=== PATIENT | female | born 1955 | race Caucasian/White ===

== ENCOUNTER → 2017-11-15 11:06 | Outpatient (CLI) | payer OTHER, SELFPAY ==
--- NOTE | 2017-11-15 11:07 | DI.RAD.S_ITS ---
PROCEDURE: XR ANKLE RT MIN 3V INDICATIONS: Ankle pain TECHNIQUE: 3 views of the ankle were acquired. COMPARISON: None. FINDINGS: Bones: No fractures or dislocations. Ankle mortise is normally aligned. No suspicious bony lesions. Soft tissues: No tibiotalar joint effusion. Achilles tendon appears normal. Lateral soft tissue swelling. IMPRESSION: Soft tissue swelling laterally, negative for fracture Dictated by: Jagdeep Givens M.D. on 11/15/2017 at 11:19 Approved by: Jagdeep Givens M.D. on 11/15/2017 at 11:20
== END ==
PROVIDERS: PCP Physician Assistant; Visit Provider Physician Assistant
DX: M25.571 Pain in right ankle and joints of right foot (principal); M25.471 Effusion, right ankle
CPT/HCPCS: 73610

== ENCOUNTER → 2018-03-12 12:31 | Outpatient (CLI) | payer OTHER, SELFPAY ==
--- NOTE | 2018-03-12 12:33 | DI.MG.S_ITS ---
BILATERAL DIGITAL SCREENING MAMMOGRAM 3D/2D WITH CAD: 03/12/2018 CLINICAL: Routine screening. Comparison is made to exams dated: 03/02/2017 mammogram, 01/17/2015 mammogram, and 01/15/2014 mammogram - [facility]. The tissue of both breasts is heterogeneously dense. This may lower the sensitivity of mammography. Current study was also evaluated with a Computer Aided Detection (CAD) system. No significant masses, calcifications, or other findings are seen in either breast. There has been no significant interval change. IMPRESSION: NEGATIVE There is no mammographic evidence of malignancy. A 1 year screening mammogram is recommended. This exam was interpreted at Station ID: [id number]. NOTE: For mammograms, a report in lay terms will be sent to the patient. Approximately 15% of breast malignancies will not be visualized mammographically. In the management of a palpable breast mass, a negative mammogram must not discourage biopsy of a clinically suspicious lesion. Electronically Signed By: Mahesh carpio/dara:03/15/2018 11:59:56 letter sent: Normal Exam ACR BI-RADS Category 1: Negative 3341F
== END ==
PROVIDERS: PCP Physician Assistant; Visit Provider Physician Assistant
DX: Z12.31 Encounter for screening mammogram for malignant neoplasm of breast (principal)
CPT/HCPCS: 77063; 77067

== ENCOUNTER → 2018-03-24 09:49 | Outpatient (CLI) | payer OTHER, SELFPAY ==
[2018-03-24 10:39] LABS: Alanine Aminotransferase 24 IU/L (9-52); Albumin 4.3 g/dL (3.5-5.0); Albumin Globulin Ratio 1.5 (1.0-2.8); Alkaline Phosphatase 56 U/L (38-126); Aspartate Aminotransferase 29 IU/L (14-36); BUN Creatinine Ratio 18.8 (6-22); Bilirubin Total 1.1 mg/dL (0.2-1.3); Blood Urea Nitrogen 15 mg/dL (7-17); Calcium 9.4 mg/dL (8.4-10.2); Carbon Dioxide 24 mmol/L (22-32); Chloride 98 mmol/L (98-107); Cholesterol 243 mg/dL (140-199); Estimated Glomerular Filt Rate > 60.0 mL/min (>60); Globulin 2.9 g/dL (1.7-4.1); Glucose 91 mg/dL (80-110); HDL Cholesterol 71 mg/dL (40-60); HEMOLYSIS < 15 (0-50); LDL Cholesterol Calculated 149 mg/dL (<100); Potassium 4.3 mmol/L (3.4-5.1); Sodium 135 mmol/L (137-145); Total Protein 7.2 g/dL (6.3-8.2); Triglycerides 114 mg/dL (35-150)
[2018-03-24 10:52] LABS: Free T3, Triiodothyronine Free 3.39 pg/mL (2.77-5.27)
[2018-03-24 10:54] LABS: Vitamin D 25 Hydroxy (D3) 69.9 ng/mL (30.0-100.0)
[2018-03-24 11:06] LABS: Thyroid Stimulating Hormone 2.91 uIU/mL (0.47-4.68)
== END ==
PROVIDERS: PCP Physician Assistant; Visit Provider Physician Assistant
DX: E03.9 Hypothyroidism, unspecified (principal); M85.80 Other specified disorders of bone density and structure, unspecified site; Z13.220 Encounter for screening for lipoid disorders; Z13.6 Encounter for screening for cardiovascular disorders
CPT/HCPCS: 36415; 80053; 80061; 82306; 84439; 84443; 84481

== ENCOUNTER → 2018-08-30 11:49 | Outpatient (CLI) | payer OTHER, SELFPAY ==
[2018-09-01 09:05] LABS: Fecal Immunochemical Test NOT DETECTED (NOT DETECTED)
== END ==
PROVIDERS: PCP Physician Assistant; Visit Provider Physician Assistant
DX: Z12.11 Encounter for screening for malignant neoplasm of colon (principal)
CPT/HCPCS: 82274

== ENCOUNTER → 2019-01-03 13:32 | Outpatient (CLI) | payer OTHER, SELFPAY ==
[2019-01-03 15:04] LABS: Iron 101 ug/dL (37-170)
== END ==
PROVIDERS: PCP Physician Assistant; Visit Provider Physician Assistant
DX: R53.83 Other fatigue (principal)
CPT/HCPCS: 36415; 83540

== ENCOUNTER → 2019-03-30 11:05 | Outpatient (CLI) | payer OTHER, SELFPAY ==
--- NOTE | 2019-03-30 | DI.MG.S_ITS ---
BILATERAL DIGITAL SCREENING MAMMOGRAM 3D/2D WITH CAD: 03/30/2019 CLINICAL: Routine screening. Comparison is made to exams dated: 03/12/2018 mammogram, 03/02/2017 mammogram, 01/17/2015 mammogram, and 01/15/2014 mammogram - [facility]. The tissue of both breasts is heterogeneously dense. This may lower the sensitivity of mammography. Current study was also evaluated with a Computer Aided Detection (CAD) system. No significant masses, calcifications, or other findings are seen in either breast. There has been no significant interval change. IMPRESSION: NEGATIVE There is no mammographic evidence of malignancy. A 1 year screening mammogram is recommended. This exam was interpreted at Station ID: [id number]. NOTE: For mammograms, a report in lay terms will be sent to the patient. Approximately 15% of breast malignancies will not be visualized mammographically. In the management of a palpable breast mass, a negative mammogram must not discourage biopsy of a clinically suspicious lesion. Electronically Signed By: Rolly knight/dara:03/30/2019 17:06:41 letter sent: Normal Exam ACR BI-RADS Category 1: Negative 3341F
== END ==
PROVIDERS: PCP Physician Assistant; Visit Provider Physician Assistant
DX: Z12.31 Encounter for screening mammogram for malignant neoplasm of breast (principal)
CPT/HCPCS: 77063; 77067

== ENCOUNTER → 2019-08-31 14:36 | Outpatient (CLI) | payer OTHER, SELFPAY ==
[2019-08-31 16:12] LABS: Thyroid Stimulating Hormone 0.05 uIU/mL (0.47-4.68)
== END ==
PROVIDERS: PCP Nurse Practitioner Family; Referring Provider Nurse Practitioner Family; Visit Provider Nurse Practitioner Family
DX: E03.9 Hypothyroidism, unspecified (principal)
CPT/HCPCS: 36415; 84443

== ENCOUNTER → 2019-10-23 12:09 | Outpatient (CLI) | payer OTHER, SELFPAY ==
[2019-10-23 13:22] LABS: Free T4, Direct Thyroxine 2.37 ng/dL (0.78-2.19)
[2019-10-23 13:37] LABS: Thyroid Stimulating Hormone < 0.015 uIU/mL (0.47-4.68)
[2019-10-24 14:27] LABS: Vitamin B12 647 pg/mL (239-931)
== END ==
PROVIDERS: PCP Nurse Practitioner Family; Referring Provider Nurse Practitioner Family; Visit Provider Nurse Practitioner Family
DX: K12.0 Recurrent oral aphthae (principal); E03.9 Hypothyroidism, unspecified
CPT/HCPCS: 36415; 82607; 84439; 84443

== ENCOUNTER → 2019-10-26 13:56 | Outpatient (CLI) | payer OTHER, SELFPAY ==
[2019-10-26 15:06] LABS: Add Manual Diff / Slide Review NO; Basophils Absolute Auto 0 /uL (0-100); Basophils Percent Auto 0.8 % (0-2); Eosinophils Absolute Auto 100 /uL (0-450); Eosinophils Percent Auto 2.1 % (2-4); Hematocrit 37.9 % (36-46); Hemoglobin 13.1 g/dL (12.0-16.0); Lymphocytes Absolute Auto 1600 /uL (1100-4500); Lymphocytes Percent Auto 30.9 % (25-40); Mean Corpuscular HGB Conc 34.5 % (30-36); Mean Corpuscular Hemoglobin 29.8 PG (26-34); Mean Corpuscular Volume 86.1 fL (80-100); Monocytes Absolute Auto 400 /uL (0-900); Monocytes Percent Auto 6.9 % (3-14); Neutrophils Absolute Auto 3000 /uL (1500-7000); Neutrophils Percent Auto 59.3 % (50-75); Platelet Count 273 X10^3/uL (150-400); Red Cell Distribution Width 12.4 % (11.6-14.8); White Blood Cell Count 5.1 X10^3/uL (4.5-11.0)
[2019-10-26 15:18] LABS: HEMOLYSIS < 15 (0-50); Iron 107 ug/dL (37-170)
[2019-10-26 15:30] LABS: Percent Iron Saturation 34 % (15-50); Total Iron Binding Capacity 316 ug/dL (265-497); Transferrin 252 mg/dL (206-381)
== END ==
PROVIDERS: PCP Nurse Practitioner Family; Referring Provider Nurse Practitioner Family; Visit Provider Nurse Practitioner Family
DX: K12.0 Recurrent oral aphthae (principal)
CPT/HCPCS: 36415; 83540; 83550; 85025

== ENCOUNTER → 2019-12-11 11:06 | Outpatient (CLI) | payer OTHER, SELFPAY ==
--- NOTE | 2019-12-11 11:08 | DI.RAD.S_ITS ---
PROCEDURE: XR SHOULDER LT MIN 2V INDICATIONS: left shoulder pain TECHNIQUE: 3 views of the shoulder were acquired. COMPARISON: [facility], , SHOULDER MINIMUM 2 VIEW LEFT, 01/15/2009, 11:14. FINDINGS: Bones: No fractures or dislocations. No suspicious bony lesions. Visualized ribs appear intact. There are mild degenerative changes of the acromioclavicular joint. Coracoclavicular and acromioclavicular intervals are maintained. Soft tissues: No suspicious soft tissue calcifications. IMPRESSION: Mild left acromioclavicular osteoarthrosis. No acute radiographic abnormalities. Dictated by: Carlos Simmons M.D. on 12/11/2019 at 17:56 Approved by: Carlos Simmons M.D. on 12/11/2019 at 17:57
== END ==
PROVIDERS: PCP Nurse Practitioner Family; Referring Provider Nurse Practitioner Family; Visit Provider Nurse Practitioner Family
DX: M25.512 Pain in left shoulder (principal); M19.012 Primary osteoarthritis, left shoulder
CPT/HCPCS: 73030

== ENCOUNTER → 2019-12-28 08:32 | Outpatient (CLI) | payer OTHER, SELFPAY ==
[2019-12-28 09:38] LABS: Alanine Aminotransferase 22 IU/L (<35); Albumin 4.2 g/dL (3.5-5.0); Albumin Globulin Ratio 1.3 (1.0-2.8); Alkaline Phosphatase 63 U/L (38-126); Aspartate Aminotransferase 33 IU/L (14-36); BUN Creatinine Ratio 26.3 (6-22); Bilirubin Total 0.8 mg/dL (0.2-1.3); Blood Urea Nitrogen 21 mg/dL (7-17); Calcium 9.5 mg/dL (8.4-10.2); Carbon Dioxide 27 mmol/L (22-32); Chloride 104 mmol/L (98-107); Estimated Glomerular Filt Rate > 60.0 mL/min (>60); Globulin 3.2 g/dL (1.7-4.1); Glucose 90 mg/dL (80-110); HEMOLYSIS < 15 (0-50); Potassium 4.1 mmol/L (3.4-5.1); Sodium 138 mmol/L (137-145); Total Protein 7.4 g/dL (6.3-8.2)
[2019-12-28 10:27] LABS: Thyroid Stimulating Hormone < 0.015 uIU/mL (0.47-4.68)
== END ==
PROVIDERS: PCP Nurse Practitioner Family; Referring Provider Nurse Practitioner Family; Visit Provider Nurse Practitioner Family
DX: E03.9 Hypothyroidism, unspecified (principal)
CPT/HCPCS: 36415; 80053; 84443

== ENCOUNTER → 2020-01-30 12:01 | Outpatient (CLI) | payer OTHER, SELFPAY ==
[2020-01-30 15:40] LABS: Thyroid Stimulating Hormone < 0.015 uIU/mL (0.47-4.68)
== END ==
PROVIDERS: PCP Nurse Practitioner Family; Referring Provider Nurse Practitioner Family; Visit Provider Nurse Practitioner Family
DX: E03.9 Hypothyroidism, unspecified (principal)
CPT/HCPCS: 36415; 84443

== ENCOUNTER → 2020-03-05 10:22 | Outpatient (CLI) | payer OTHER, SELFPAY ==
--- NOTE | 2020-03-05 10:23 | DI.RAD.S_ITS ---
PROCEDURE: XR CHEST 2V INDICATIONS: ongoing cough TECHNIQUE: 2 views of the chest were acquired. COMPARISON: [facility], CHEST 2 VIEW, 04/10/2010, 11:20. [facility], CHEST 2 VIEW, 05/16/2009, 15:26. FINDINGS: Surgical changes and devices: None. Lungs and pleura: Lungs are clear on the right but there is a small area of increased radiodensity of at the left lower lobe lateral to the left ventricular apex. This is vaguely marginated, and could represent a small focus of pneumonia. No pleural effusions or pneumothorax. Mediastinum: Mediastinal contours are normal. Heart size is normal. Bones and chest wall: No suspicious bony abnormalities. Soft tissues appear unremarkable. IMPRESSION: Possible mild or early pneumonia left lung base adjacent to the ventricular apex just above the middle 3rd of the left hemidiaphragm. Recommend follow-up assessment of that area in approximately 2 weeks to assess for interval resolution. Follow-up CT scanning may become necessary. Dictated by: Antelmo Bradley M.D. on 03/05/2020 at 10:39 Approved by: Antelmo Bradley M.D. on 03/05/2020 at 10:42
== END ==
PROVIDERS: PCP Nurse Practitioner Family; Referring Provider Nurse Practitioner Family; Visit Provider Nurse Practitioner Family
DX: R05 Cough (principal)
CPT/HCPCS: 71046

== ENCOUNTER → 2020-03-27 13:29 | Outpatient (CLI) | payer OTHER, SELFPAY ==
--- NOTE | 2020-03-27 13:30 | DI.RAD.S_ITS ---
PROCEDURE: XR CHEST 2V INDICATIONS: follow up pneumonia TECHNIQUE: 2 views of the chest were acquired. COMPARISON: [facility], , XR CHEST 2V, 03/05/2020, 9:21. [facility], , CHEST 2 VIEW, 04/10/2010, 11:20. FINDINGS: Surgical changes and devices: None. Lungs and pleura: Lungs are unchanged with a focus of increased radiodensity superimposed on the area immediately lateral to the left ventricular apex. This pattern was not clearly present on prior plain film imaging from 04/10/10 and has not appreciably improved from 03/05/20. No pleural effusions or pneumothorax. Mediastinum: Mediastinal contours are normal. Heart size is normal. Bones and chest wall: No suspicious bony abnormalities. Soft tissues appear unremarkable. IMPRESSION: Uncertain etiology for focal increased radiodensity adjacent to the left ventricular apex left lower lobe. This also could be a focus of abnormality within the lingular segment left upper lobe. The appearance has not improved or worsened from 03/05/20. Follow-up by plain film in 2 weeks likely is warranted. Dictated by: Antelmo Bradley M.D. on 03/27/2020 at 13:53 Approved by: Antelmo Bradley M.D. on 03/27/2020 at 13:56
== END ==
PROVIDERS: PCP Nurse Practitioner Family; Referring Provider Nurse Practitioner Family; Visit Provider Nurse Practitioner Family
DX: Z09 Encounter for follow-up examination after completed treatment for conditions other than malignant neoplasm (principal); Z87.01 Personal history of pneumonia (recurrent)
CPT/HCPCS: 71046

== ENCOUNTER → 2020-04-01 13:59 | Outpatient (CLI) | payer OTHER, SELFPAY | PROVIDERS: PCP Nurse Practitioner Family; Referring Provider Nurse Practitioner Family; Visit Provider Nurse Practitioner Family | DX: M85.852 Other specified disorders of bone density and structure, left thigh (principal); Z78.0 Asymptomatic menopausal state; E07.9 Disorder of thyroid, unspecified; Z82.62 Family history of osteoporosis | CPT/HCPCS: 77080 ==

== ENCOUNTER → 2020-04-09 14:58 | Outpatient (CLI) | payer OTHER, SELFPAY ==
--- NOTE | 2020-04-09 15:00 | DI.CT.S_ITS ---
PROCEDURE: CT CHEST WO CON INDICATIONS: cough, pnuemonia TECHNIQUE: Noncontrast 5 mm thick sections acquired from the pulmonary apices to the posterior costophrenic angles. 1 mm lung window, 5 mm thick coronal and sagittal and 7 mm axial MIP reformats were then acquired. For radiation dose reduction, the following was used: automated exposure control, adjustment of mA and/or kV according to patient size. COMPARISON: [facility], CT, THORAX WITH CONTRAST, 05/09/2010, 8:45. FINDINGS: Image quality: Excellent. Lungs and pleura: There is a slight degree of alveolar infiltration at the medial segment right middle lobe anteriorly and a correspondin is seen. area at the same axial level within the lingular segment left upper lobe. A very faint degree of alveolar prominence is seen at the left lung base near the diaphragm. No pleural effusion is found, no evidence of mass lesion. No pleural effusions or pneumothorax. Central and peripheral airways are patent and normal in caliber. Mediastinum: Heart size is normal. No pericardial effusion. No mediastinal adenopathy by size criteria. Thoracic aorta and central pulmonary arteries are normal in size. Esophagus is normal in caliber. No hiatal hernia. Bones and chest wall: No suspicious bony lesions. No vertebral body compression fractures. No axillary or supraclavicular adenopathy by size criteria. Thyroid gland is not well seen by this noncontrast technique . Abdomen: Visualized upper abdominal solid organs and bowel loops appear normal in the absence of contrast. IMPRESSION: Small areas of alveolar airspace disease are present as discussed above anterior medial segment right middle lobe and the anterior lingular segment left upper lobe, and at the left lower lobe just above the diaphragm. These findings would not be identifiable by plain film. No definite pneumonia or underlying neoplasm is found. Dictated by: Antelmo Bradley M.D. on 04/09/2020 at 16:39 Approved by: Antelmo Bradley M.D. on 04/09/2020 at 16:42
== END ==
PROVIDERS: PCP Nurse Practitioner Family; Referring Provider Family Medicine; Visit Provider Family Medicine
DX: R05 Cough (principal); J18.9 Pneumonia, unspecified organism; J98.8 Other specified respiratory disorders; R91.1 Solitary pulmonary nodule
CPT/HCPCS: 71250

== ENCOUNTER → 2020-04-19 16:06 | Outpatient (CLI) | payer OTHER, SELFPAY ==
--- NOTE | 2020-04-19 16:08 | DI.MG.S_ITS ---
BILATERAL DIGITAL SCREENING MAMMOGRAM 3D/2D WITH CAD: 04/19/2020 CLINICAL: Routine screening. Comparison is made to exams dated: 03/30/2019 mammogram and 03/12/2018 mammogram - [facility]. The tissue of both breasts is heterogeneously dense. This may lower the sensitivity of mammography. Current study was also evaluated with a Computer Aided Detection (CAD) system. No significant masses, calcifications, or other findings are seen in either breast. There has been no significant interval change. IMPRESSION: NEGATIVE There is no mammographic evidence of malignancy. A 1 year screening mammogram is recommended. This exam was interpreted at Station ID: [id number]. NOTE: For mammograms, a report in lay terms will be sent to the patient. Approximately 15% of breast malignancies will not be visualized mammographically. In the management of a palpable breast mass, a negative mammogram must not discourage biopsy of a clinically suspicious lesion. Electronically Signed By: Maehsh carpio/dara:04/19/2020 17:03:40 letter sent: Normal Exam ACR BI-RADS Category 1: Negative 3341F
== END ==
PROVIDERS: PCP Nurse Practitioner Family; Referring Provider Nurse Practitioner Family; Visit Provider Nurse Practitioner Family
DX: Z12.31 Encounter for screening mammogram for malignant neoplasm of breast (principal)
CPT/HCPCS: 77063; 77067

== ENCOUNTER → 2020-04-25 14:25 | Outpatient (CLI) | payer OTHER, SELFPAY ==
[2020-04-25 16:23] LABS: Alanine Aminotransferase 18 IU/L (<35); Albumin Globulin Ratio 1.3 (1.0-2.8); Alkaline Phosphatase 63 U/L (38-126); Aspartate Aminotransferase 32 IU/L (14-36); BUN Creatinine Ratio 28.6 (6-22); Bilirubin Total 0.6 mg/dL (0.2-1.3); Blood Urea Nitrogen 24 mg/dL (7-17); Calcium 9.7 mg/dL (8.4-10.2); Carbon Dioxide 31 mmol/L (22-32); Chloride 102 mmol/L (98-107); Estimated Glomerular Filt Rate > 60.0 mL/min (>60); Globulin 3.2 g/dL (1.7-4.1); Glucose 80 mg/dL (80-110); HEMOLYSIS < 15 (0-50); Potassium 4.5 mmol/L (3.4-5.1); Sodium 135 mmol/L (137-145); Total Protein 7.2 g/dL (6.3-8.2)
[2020-04-25 16:46] LABS: Thyroid Stimulating Hormone 0.289 uIU/mL (0.47-4.68)
== END ==
PROVIDERS: PCP Nurse Practitioner Family; Referring Provider Nurse Practitioner Family; Visit Provider Nurse Practitioner Family
DX: Z00.00 Encounter for general adult medical examination without abnormal findings (principal); E03.9 Hypothyroidism, unspecified
CPT/HCPCS: 36415; 80053; 84443

== ENCOUNTER → 2020-07-09 13:31 | Outpatient (CLI) | payer OTHER, SELFPAY ==
[2020-07-09 15:26] LABS: Thyroid Stimulating Hormone 5.85 uIU/mL (0.47-4.68)
== END ==
PROVIDERS: PCP Nurse Practitioner Family; Referring Provider Nurse Practitioner Family; Visit Provider Nurse Practitioner Family
DX: E03.9 Hypothyroidism, unspecified (principal)
CPT/HCPCS: 36415; 84443

== ENCOUNTER → 2020-09-19 10:09 | Outpatient (CLI) | payer OTHER, SELFPAY ==
[2020-09-19 11:43] LABS: Cholesterol 256 mg/dL (140-199); HDL Cholesterol 63 mg/dL (40-60); LDL Cholesterol Calculated 168 mg/dL (<100); Triglycerides 124 mg/dL (35-150)
[2020-09-19 12:00] LABS: Free T4, Direct Thyroxine 1.17 ng/dL (0.78-2.19)
[2020-09-19 12:14] LABS: Thyroid Stimulating Hormone 3.48 uIU/mL (0.47-4.68)
== END ==
PROVIDERS: Nurse Practitioner Family; PCP Family Medicine; Referring Provider Family Medicine; Visit Provider Family Medicine
DX: E03.9 Hypothyroidism, unspecified (principal); F51.01 Primary insomnia
CPT/HCPCS: 36415; 80061; 84439; 84443

== ENCOUNTER → 2020-11-08 14:06 | Outpatient (CLI) | payer OTHER, SELFPAY ==
--- NOTE | 2020-11-08 14:09 | DI.RAD.S_ITS ---
PROCEDURE: XR LUMBAR SPINE 2-3V INDICATIONS: right back and sciatica pain TECHNIQUE: 3 views of the lumbar spine were acquired. COMPARISON: [facility], , L-SPINE 2-3 VIEWS, 06/05/2016, 13:04. FINDINGS: Bones: No acute fracture. Multilevel degenerative endplate sclerosis and spurring. Diffuse facet arthropathy. Levoscoliosis noted. Diffuse moderate narrowing of the lumbar disc spaces, grossly unchanged Soft tissues: Overlying bowel gas pattern is normal. No suspicious soft tissue calcifications. IMPRESSION: Unchanged diffuse lumbar spondylosis and facet arthropathy Levoscoliosis as before Dictated by: Ihsan Mead M.D. on 11/08/2020 at 15:18 Approved by: Ihsan Mead M.D. on 11/08/2020 at 15:19
--- NOTE | 2020-11-08 14:09 | DI.RAD.S_ITS ---
PROCEDURE: XR HIP W PEL IF DONE RODRIGO MIN 4V INDICATIONS: bilateral hip pain TECHNIQUE: AP pelvis with lateral view(s) of the left and right hip(s). COMPARISON: [facility], , [id number] W PEL IF PERFORMED, 06/05/2016, 13:04. FINDINGS: Bones: No acute fracture. Lateral curvature of the lumbar spine, spondylosis and facet arthropathy. Degenerative sclerosis and spurring at the SI joints and pubis symphysis. Mild bilateral hip osteoarthritis. No interval change on the left since 06/05/16. Soft tissues: The visualized bowel gas pattern is normal. No suspicious soft tissue calcifications. IMPRESSION: Mild bilateral hip osteoarthritis. If the patient's pain or other symptoms persist, consider further evaluation with MRI Dictated by: Ihsan Mead M.D. on 11/08/2020 at 15:19 Approved by: Ihsan Mead M.D. on 11/08/2020 at 15:20
== END ==
PROVIDERS: PCP Family Medicine; Referring Provider Family Medicine; Visit Provider Family Medicine
DX: M25.551 Pain in right hip (principal); M25.552 Pain in left hip; M16.0 Bilateral primary osteoarthritis of hip; M54.41 Lumbago with sciatica, right side; M47.816 Spondylosis without myelopathy or radiculopathy, lumbar region; M41.9 Scoliosis, unspecified; G89.29 Other chronic pain
CPT/HCPCS: 72100; 73522

== ENCOUNTER → 2020-11-27 13:27 | Outpatient (CLI) | payer OTHER, SELFPAY ==
[2020-11-27 15:50] LABS: COVID19 -Nasal RAPID Negative (Negative)
== END ==
PROVIDERS: PCP Family Medicine; Referring Provider Nurse Practitioner; Visit Provider Nurse Practitioner
DX: Z20.822 Contact with and (suspected) exposure to COVID-19 (principal); R51.9 Headache, unspecified; R53.83 Other fatigue
CPT/HCPCS: 87635

== ENCOUNTER → 2020-12-24 12:40 | Outpatient (CLI) | payer OTHER, SELFPAY ==
--- NOTE | 2020-12-24 12:41 | DI.MRI.S_ITS ---
PROCEDURE: MR LUMBAR SPINE WO CON INDICATIONS: arthritis and disc narrowing in her low back TECHNIQUE: Noncontrast sagittal T1 spin echo and T2 fast echo, sagittal STIR, axial T1 and T2 fast spin echo through the lumbar spine. In cases with scoliosis, additional coronal T2 fast spin echo may be performed. COMPARISON: [facility], MR, L-SPINE WITHOUT CONTRAST, 01/20/2017, 14:42. [facility], CR, XR LUMBAR SPINE 2-3V, 11/08/2020, 14:32. FINDINGS: Image quality: Diagnostic, with note made of motion artifact. Alignment and Curvature: There is [id number] levoconvex lumbar scoliosis. No focal AP alignment abnormality is seen. Bone Marrow: Marrow is of normal overall signal. No acute vertebral body compression fractures. Spinal Cord: Conus medullaris terminates at the L1 level. Visualized cord demonstrates normal signal and size. Paraspinous Soft Tissues: No paravertebral masses. T12-L1: Normal appearance. L1-L2: Normal appearance. L2-L3: No significant abnormality is seen. L3-L4: The disc height and disc signal are relatively well preserved. Mild to moderate disc bulge is seen, which is eccentric to the left. There is moderate facet hypertrophy seen, left worse than right. Moderate bilateral neural foraminal narrowing is seen. Mild central canal narrowing is seen. When comparison is made with the prior images, these findings are similar. L4-L5: The disc height is well-preserved. Loss of disc signal is seen at this level. Mild disc bulge is seen, with a mild central disc protrusion. There is a focal annular fissure seen posteriorly. Prominent facet hypertrophy is seen at this level. There is moderate to severe right-sided and at least moderate left-sided neural foraminal narrowing seen. Mild to moderate central canal narrowing is seen at this level. When comparison is made with the prior images, these findings are similar. L5-S1: The disc height and disc signal are relatively well preserved. Mild disc bulge is seen, which is eccentric to the right. Moderate facet joint hypertrophy is seen. No significant neural foraminal or central canal narrowing can be seen. Stable from the prior study. IMPRESSION: Lower lumbar spine degenerative changes are seen, which are similar to 2017. Dictated by: Tuan Anen M.D. on 12/24/2020 at 15:44 Approved by: Tuan Anne M.D. on 12/24/2020 at 15:48
== END ==
PROVIDERS: PCP Family Medicine; Referring Provider Family Medicine; Visit Provider Family Medicine
DX: M25.551 Pain in right hip (principal); M25.552 Pain in left hip; M54.41 Lumbago with sciatica, right side; G89.29 Other chronic pain; M51.36 Other intervertebral disc degeneration, lumbar region; M48.061 Spinal stenosis, lumbar region without neurogenic claudication
CPT/HCPCS: 72148

== ENCOUNTER → 2021-01-28 15:45 | Outpatient (CLI) | payer OTHER, SELFPAY ==
[2021-01-28 16:27] LABS: COVID19 -Nasal RAPID Negative (Negative)
== END ==
PROVIDERS: PCP Family Medicine; Referring Provider Nurse Practitioner; Visit Provider Nurse Practitioner
DX: Z20.822 Contact with and (suspected) exposure to COVID-19 (principal)
CPT/HCPCS: 87635

== ENCOUNTER → 2021-02-09 12:21 | Outpatient (CLI) | payer OTHER, SELFPAY ==
--- NOTE | 2021-02-09 12:23 | DI.RAD.S_ITS ---
PROCEDURE: XR CHEST 2V INDICATIONS: upper respiratory infection TECHNIQUE: 2 views of the chest were acquired. COMPARISON: [facility], CR, XR CHEST 2V, 03/27/2020, 13:29. FINDINGS: Surgical changes and devices: None. Lungs and pleura: Lungs are clear. No pleural effusions or pneumothorax. Mediastinum: Mediastinal contours are normal. Heart size is normal. Vascular calcifications within the aorta. Bones and chest wall: No suspicious bony abnormalities. Soft tissues appear unremarkable. IMPRESSION: No evidence of an acute cardiopulmonary abnormality. Dictated by: Salas Patel D.O. on 02/09/2021 at 11:47 Approved by: Salas Patel D.O. on 02/09/2021 at 11:49
== END ==
PROVIDERS: PCP Family Medicine; Referring Provider Physician Assistant; Visit Provider Physician Assistant
DX: J06.9 Acute upper respiratory infection, unspecified (principal)
CPT/HCPCS: 71046

== ENCOUNTER → 2021-03-18 13:41 | Outpatient (CLI) | payer OTHER, SELFPAY ==
[2021-03-18 14:40] LABS: Add Manual Diff / Slide Review NO; Basophils Absolute Auto 0 /uL (0-100); Basophils Percent Auto 1.2 % (0-2); Eosinophils Absolute Auto 100 /uL (0-450); Eosinophils Percent Auto 2.1 % (2-4); Hematocrit 38.7 % (36-46); Hemoglobin 13.2 g/dL (12.0-16.0); Lymphocytes Absolute Auto 1300 /uL (1100-4500); Lymphocytes Percent Auto 36.2 % (25-40); Mean Corpuscular HGB Conc 34.1 % (30-36); Mean Corpuscular Hemoglobin 29.5 PG (26-34); Mean Corpuscular Volume 86.6 fL (80-100); Monocytes Absolute Auto 200 /uL (0-900); Monocytes Percent Auto 6.4 % (3-14); Neutrophils Absolute Auto 2000 /uL (1500-7000); Neutrophils Percent Auto 54.1 % (50-75); Platelet Count 252 X10^3/uL (150-400); Red Blood Cell Count 4.47 X10^6/uL (4.0-5.2); Red Cell Distribution Width 12.8 % (11.6-14.8); White Blood Cell Count 3.7 X10^3/uL (4.5-11.0)
[2021-03-18 14:53] LABS: HEMOLYSIS < 15 (0-50); Iron 82 ug/dL (37-170)
[2021-03-18 14:59] LABS: Magnesium 1.9 mg/dL (1.6-2.3)
[2021-03-18 15:04] LABS: Percent Iron Saturation 25 % (15-50); Total Iron Binding Capacity 322 ug/dL (265-497); Transferrin 265 mg/dL (206-381)
[2021-03-18 15:29] LABS: Ferritin 37 ng/mL (11-264)
== END ==
PROVIDERS: PCP Family Medicine; Referring Provider Family Medicine; Visit Provider Family Medicine
DX: F51.01 Primary insomnia (principal); G25.81 Restless legs syndrome
CPT/HCPCS: 36415; 82728; 83540; 83550; 83735; 85025

== ENCOUNTER → 2021-03-24 13:02 | Outpatient (CLI) | payer OTHER, SELFPAY ==
--- NOTE | 2021-03-24 | DI.RAD.S_ITS ---
PROCEDURE: FL BARIUM SWALLOW W SPEECH INDICATIONS: DYSPHAGIA, UNSPECIFIED COMPARISON: None. TECHNIQUE: Examination was conducted in conjunction with speech pathology per standard protocol. In the lateral projection, filming was performed of the patient swallowing. AP projection filming may also be performed with patient swallowing. COMPARISON: FINDINGS: Function: The oral preparatory phase appears normal, with proper containment. The subsequent oral propulsive phase, pharyngeal phase, and esophageal phase of swallowing also appear normal with all proffered substances. No laryngotracheal penetration without neelima aspiration occurred episodically when swallowing thin liquids. No laryngotracheal penetration or aspiration identified when swallowing thick liquids, semi-solids or solids.. No pathologic vallecular pooling. Morphology: No cricopharyngeal bar is identified. No cervical esophageal webs. No Zenker's diverticulum. No strictures. IMPRESSION: Laryngotracheal penetration with thin liquids. Dictated by: Aixa Hall MD, PhD on 03/24/2021 at 15:04 Approved by: Aixa Hall MD, PhD on 03/24/2021 at 15:05
--- NOTE | 2021-03-25 15:22 | ST.SWALLOW ---
Visit Care Team Role Provider Type Jagdeep Chacko MD Attending Provider Physician Primary Care Provider Referring Provider Specialty: Family Practice Address: [address] [place] [address], [facility] Email: [email or web address] Modified Barium Swallow Study DATA BASE DESIGN ANALYST Modified Barium Swallow Study Start: 03/24/21 14:16 Freq: Status: Active Protocol: Document 03/24/21 14:16 LNK (Rec: 03/24/21 14:24 LNK [id number]) Modified Barium Swallow Study Total Time Visit Start Time 13:30 Visit Stop Time 14:00 Total Visit Minutes [address] Chacko Reason for Referral dysphagia Setting Setting Outpatient Care Patient Information Identification Type Name,Date of Patient History Pt was seen for a Modified Barium Swallow Study (MBSS) at the referral of Dr. Chacko. Pt reported that she has been choking when she eats and drinks and even out of the blue. She stated this had been going on for the past 6 months. She described a sensation of tightness at the base of her neck as if something is stuck, at times with pain near her upper chest . Pt's medical history includes GERD for which she takes omneprozol 1x/day in the evening. She sleeps with the head of her bed elevated, which asht states has hleped a lot. Pt is scheduled with GI in April, per pt. Subjective Observations Pt was seated in the fluoroscopy chair. Instructions and procedure were described for the pt , who indicated she understood and agreed to proceed. Pt reported that she was nervous about the test. Patient Positioning Position View Lat-A/P Imaging Lateral View Textures Administered Trials Presented Thin Liquid via Spoon,Thin Liquid via Cup,[place] Liquid via Spoon,[place] Liquid via Cup,Pudding Thick Liquid via Spoon,Regular Textures Oral Phase Source: MBSIMP (TM) (C) Bolus Specific Scoring Grid Lip Closure No Impairment (WNL) Tongue Control During Bolus Hold No Impairment (WNL) Bolus Prep/Mastication No Impairment (WNL) Bolus Transport/Lingual Motion No Impairment (WNL) A/P Lingual Propulsion Delay No Oral Residue Mild Impairment Residue Clearing WFL Nasal Regurgitation No Additional Oral Phase Observations OME indicated ROM ads strength were WNL. All teeth intact with good hygiene. DKS was WNL . ORAL PHASE: Pt's mastication was observed to be WNL with good rotary chew. A/P transition was WNL. Residue was observed at the base of tongue and along the blade of the tongue. Mild leakage into pharynx preswallow. Pharyngeal Phase Source: MBSIMP (TM) (C) Bolus Specific Scoring Grid Delayed Initiation of Pharyngeal Swallow No: Premature leakage to the valeculla before swallow Soft Palate Elevation No Impairment (WNL) Tongue Base Strength/Range of Motion Mild Impairment Residue Along the Tongue Base Yes: Trace to minimal Clearance of Residue Along Tongue Base WFL Laryngeal Elevation Mild Impairment Anterior Hyoid Movement Moderate Impairment Epiglottic Range of Motion Mild Impairment Vallecular Residue Yes Clearance of Vallecular Residue Mild Impairment Laryngeal Vestibular Closure Mild Impairment Pharyngeal Stripping Wave Moderate Impairment Posterior Pharyngeal Wall Residue Yes: Trace to minimal Clearance of Posterior Pharyngeal Wall Mild Impairment Residue Upper Esophageal Sphincter Opening Mild Impairment Residue in the Pyriform Sinuses Yes: Trace to minimal Clearance of Residue in the Pyriform WFL Sinuses Esophageal Clearance Upright Position Minimal Impairment Pharyngoesophageal Backflow Observed No Additional Pharyngeal Phase Observations Premature spillage to the valeculla was observed preswallow. Laryngeal elevation was mildly reduced with the hyoid forward movement to be minimal. Reduced hyolaryngeal elevation negatively impacts the inversion of the epiglottis and the UES opening. The epiglottic inversion was moderately resulted in a weak laryngeal seal, allowing penetration into the laryngeal vestibule x5. Twice there was trace tracheal aspiration that was not cleared with coughing. Coughing was cued x3 as pt did not reflexively cough with penetration/ aspiration. Posterior pharyngeal stripping was moderately reduced resulting in decreased bolus control and pooling along the pharyngeal wall. In addition to the PPW residue, pooled contrast was observed in the valeculla, the laryngeal vestibule and and on the vocal folds. Trace contrast also noted below the folds in the trachea. Coughing did not clear this contrast. The UES appeared to be mildly reduced in diameter and duration of the opening. A/P View Textures Administered Trials Presented Barium Tablet A/P View Observations Pharyngeal Contraction No Impairment (WNL) Vocal Fold Function Good Esophageal Observations Esophageal Function The UES appeared to be mildly reduced in diameter and duration of the opening. The pt swallowed the barium tablet . The tablet was followed thought the esophagus to the LES. Esophageal function was grossly WFL Clinical Impressions Dysphagia Type Pharyngeal phase Rehabilitation Potential Excellent Patient Appropriate for Therapy Yes Recommendations Diet Comments No diet change. Encourages chin tuck with swallowing during meals Aspiration Precautions Recommended Precautions Upright at 90 Degrees,Small Bites/Sips,Chin Tuck Treatment Plan Therapy Recommendations Outpatient Speech Therapy, Lingual Exercises,Base of Tongue Exercises,Compensatory Strategy Education Additional Therapy Recommendations Out pt dysphagia therapy recommended Recommended Referrals GI Consult Short Term Goals Pt will be referred for dysphagia therapy. Stonecutter Goals Pt will safely tolerate PO intake without overt s/sx aspiration to meet nutrition/ hydration needs.
--- NOTE | 2021-03-25 15:25 | ST.OPPOC ---
Physical, Occupational & Speech Therapy At [facility] Visit Care Team Role Provider Type Jagdeep Chacko MD Attending Provider Physician Primary Care Provider Referring Provider Address: [address] [place] [address], [id number] Speech Pathology Plan of Care Patient History Pt was seen for a Modified Barium Swallow Study (MBSS) at the referral of Dr. Chacko. Pt reported that she has been choking when she eats and drinks and even out of the blue. She stated this had been going on for the past 6 months. She described a sensation of tightness at the base of her neck as if something is stuck , at times with pain near her upper chest. Pt's medical history includes GERD for which she takes omneprozol 1x/day in the evening. She sleeps with the head of her bed elevated, which she states has helped a lot. Pt is scheduled with GI in April, per pt. Electronically Signed by: LISETH Fernandez 03/25/21 [id number] Please Sign and Return: I have reviewed this Plan of Care and certify that the skilled therapy services above are required to meet the patient?s needs. Physician Signature Date Printed Name and Credentials Clinical Instructor Signature Printed Name and Credentials
== END ==
PROVIDERS: PCP Family Medicine; Referring Provider Family Medicine; Visit Provider Family Medicine
DX: R13.10 Dysphagia, unspecified (principal)
CPT/HCPCS: 74230; 92610; 92611

== ENCOUNTER → 2021-05-12 12:55 | Outpatient (CLI) | payer OTHER, SELFPAY | PROVIDERS: PCP Family Medicine; Referring Provider Internal Medicine Endocrinology, Diabetes & Metabolism; Visit Provider Internal Medicine Endocrinology, Diabetes & Metabolism | DX: E03.9 Hypothyroidism, unspecified (principal) | CPT/HCPCS: 36415; 84443 ==

== ENCOUNTER → 2021-07-15 13:47 | Outpatient (CLI) | payer MEDICARE, OTHER, SELFPAY | PROVIDERS: PCP Family Medicine; Referring Provider Family Medicine; Visit Provider Family Medicine | DX: M85.89 Other specified disorders of bone density and structure, multiple sites (principal); Z78.0 Asymptomatic menopausal state; Z87.311 Personal history of (healed) other pathological fracture | CPT/HCPCS: 77080 ==

== ENCOUNTER → 2021-08-20 12:17 | Outpatient (CLI) | payer MEDICARE, OTHER, SELFPAY ==
[2021-08-20 13:34] LABS: Add Manual Diff / Slide Review NO; Basophils Absolute Auto 0 /uL (0-100); Eosinophils Absolute Auto 100 /uL (0-450); Eosinophils Percent Auto 2.4 % (2-4); Hematocrit 38.5 % (36-46); Hemoglobin 13.2 g/dL (12.0-16.0); Lymphocytes Absolute Auto 1500 /uL (1100-4500); Lymphocytes Percent Auto 36.3 % (25-40); Mean Corpuscular HGB Conc 34.3 % (30-36); Mean Corpuscular Hemoglobin 29.4 PG (26-34); Mean Corpuscular Volume 85.8 fL (80-100); Monocytes Absolute Auto 300 /uL (0-900); Monocytes Percent Auto 7.2 % (3-14); Neutrophils Absolute Auto 2100 /uL (1500-7000); Neutrophils Percent Auto 53.1 % (50-75); Platelet Count 254 X10^3/uL (150-400); Red Blood Cell Count 4.49 X10^6/uL (4.0-5.2); Red Cell Distribution Width 12.9 % (11.6-14.8)
[2021-08-20 15:23] LABS: Free T3, Triiodothyronine Free 3.38 pg/mL (2.77-5.27); Free T4, Direct Thyroxine 1.31 ng/dL (0.78-2.19)
[2021-08-20 15:36] LABS: TSH w/ Reflex to FT4 2.24 uIU/mL (0.47-4.68)
== END ==
PROVIDERS: PCP Family Medicine; Referring Provider Family Medicine; Visit Provider Family Medicine
DX: E03.9 Hypothyroidism, unspecified (principal); D72.819 Decreased white blood cell count, unspecified
CPT/HCPCS: 36415; 84439; 84443; 84481; 85025

== ENCOUNTER → 2021-09-01 11:31 | Outpatient (CLI) | payer MEDICARE, OTHER, SELFPAY ==
--- NOTE | 2021-09-01 11:33 | DI.MG.S_ITS ---
BILATERAL DIGITAL SCREENING MAMMOGRAM 3D/2D WITH CAD: 09/01/2021 CLINICAL: Routine screening. Comparison is made to exams dated: 04/19/2020 mammogram, 03/30/2019 mammogram, and 03/12/2018 mammogram - [facility]. There are scattered fibroglandular elements in both breasts. Current study was also evaluated with a Computer Aided Detection (CAD) system. No significant masses, calcifications, or other findings are seen in either breast. There has been no significant interval change. IMPRESSION: NEGATIVE There is no mammographic evidence of malignancy. A 1 year screening mammogram is recommended. This exam was interpreted at Station ID: [id number]. NOTE: For mammograms, a report in lay terms will be sent to the patient. Approximately 15% of breast malignancies will not be visualized mammographically. In the management of a palpable breast mass, a negative mammogram must not discourage biopsy of a clinically suspicious lesion. Electronically Signed By: Sarah trujillo/dara:09/01/2021 13:55:13 letter sent: Normal Exam ACR BI-RADS Category 1: Negative 3341F
== END ==
PROVIDERS: PCP Family Medicine; Referring Provider Family Medicine; Visit Provider Family Medicine
DX: Z12.31 Encounter for screening mammogram for malignant neoplasm of breast (principal)
CPT/HCPCS: 77063; 77067

== ENCOUNTER → 2022-01-01 15:08 | Outpatient (CLI) | payer MEDICARE, OTHER, SELFPAY ==
[2022-01-01 15:32] LABS: Add Manual Diff / Slide Review NO; Basophils Absolute Auto 0 /uL (0-100); Basophils Percent Auto 1.1 % (0-2); Eosinophils Absolute Auto 100 /uL (0-450); Eosinophils Percent Auto 2.1 % (2-4); Hematocrit 40.8 % (36-46); Hemoglobin 14.1 g/dL (12.0-16.0); Lymphocytes Absolute Auto 1700 /uL (1100-4500); Mean Corpuscular HGB Conc 34.5 % (30-36); Mean Corpuscular Hemoglobin 29.5 PG (26-34); Mean Corpuscular Volume 85.6 fL (80-100); Monocytes Absolute Auto 300 /uL (0-900); Monocytes Percent Auto 6.4 % (3-14); Neutrophils Absolute Auto 2400 /uL (1500-7000); Neutrophils Percent Auto 52.4 % (50-75); Platelet Count 266 X10^3/uL (150-400); Red Blood Cell Count 4.77 X10^6/uL (4.0-5.2); Red Cell Distribution Width 13.3 % (11.6-14.8); White Blood Cell Count 4.6 X10^3/uL (4.5-11.0)
[2022-01-01 16:03] LABS: Free T3, Triiodothyronine Free 3.72 pg/mL (2.77-5.27); Free T4, Direct Thyroxine 1.08 ng/dL (0.78-2.19)
[2022-01-01 16:16] LABS: TSH w/ Reflex to FT4 7.48 uIU/mL (0.47-4.68)
== END ==
PROVIDERS: PCP Family Medicine; Referring Provider Family Medicine; Visit Provider Family Medicine
DX: E03.9 Hypothyroidism, unspecified (principal); J30.2 Other seasonal allergic rhinitis
CPT/HCPCS: 36415; 84439; 84443; 84481; 85025

== ENCOUNTER → 2022-02-17 15:25 | Outpatient (CLI) | payer MEDICARE, OTHER, SELFPAY ==
[2022-02-17 17:40] LABS: TSH w/ Reflex to FT4 0.94 uIU/mL (0.47-4.68)
== END ==
PROVIDERS: PCP Family Medicine; Referring Provider Family Medicine; Visit Provider Family Medicine
DX: E03.9 Hypothyroidism, unspecified (principal)
CPT/HCPCS: 36415; 84443

== ENCOUNTER → 2022-06-15 12:43 | Outpatient (CLI) | payer MEDICARE, OTHER, SELFPAY ==
--- NOTE | 2022-06-15 12:44 | DI.US.S_ITS ---
PROCEDURE: US ABDOMEN COMPLETE INDICATIONS: RIGHT UPPER QUADRANT PAIN TECHNIQUE: Real-time scanning was performed of the abdominal and retroperitoneal organs, with image documentation. COMPARISON: [facility], US, ABDOMEN COMPLETE, 05/29/2008, 10:27. FINDINGS: Liver: Liver is normal in size and homogeneous in echotexture. Gallbladder: No stones. No wall thickening. Biliary ducts: Intrahepatic bile ducts are non-dilated. Extrahepatic bile duct caliber measures 3.2 mm. Normal is 6-7 mm or less in diameter, or 10 mm or less post-cholecystectomy. Pancreas: Visualized portions of the pancreas are sonographically normal. Visualization of the pancreas was limited however due to overlying bowel gas. Spleen: Spleen is normal in size and homogeneous in echotexture. Kidneys: Kidneys are normal in size and echotexture. Right kidney measures 8.1 cm long; left kidney measures 9.2 cm long. No hydronephrosis or nephrolithiasis. No solid masses. Aorta: Visualized aorta is normal in caliber at less than 3 cm. Iliacs: Proximal common iliac arteries are normal in caliber at less than 2.5 cm. IVC: Intrahepatic inferior vena cava is patent. Miscellaneous: No free abdominal fluid. IMPRESSION: 1. No acute ultrasound abnormality of the right upper quadrant. 2. No gallstones. Dictated by: Diego Ashford M.D. on 06/15/2022 at 14:07 Approved by: Diego Ashford M.D. on 06/15/2022 at 14:11
== END ==
PROVIDERS: PCP Family Medicine; Referring Provider Surgery; Visit Provider Surgery
DX: R10.11 Right upper quadrant pain (principal)
CPT/HCPCS: 76700

== ENCOUNTER 2022-06-30 08:44 | Day surgery (SDC) | payer MEDICARE, OTHER, SELFPAY ==
--- NOTE | 2022-06-30 | PATH_ITS ---
[facility] Accession Number: [id number] No. of containers..01 Tissue . 01 Material submitted: . esophagus, E-G Junction - GE JUNCTION . 01 Diagnosis: Gastroesophageal Junction, Biopsy: Squamocolumnar junctional mucosa with no diagnostic abnormality. Negative for intestinal metaplasia. Negative for dysplasia and malignancy. [facility] 07/03/2022 1225 Local . 01 Electronically signed: . Blake Mitchell MD, PhD, Pathologist NPI- [id number] . 01 Gross description: . GE JUNCTION: Received in formalin are 2 fragment(s) of elder, soft tissue measuring 0.4 x 0.2 x 0.1 cm to 0.3 x 0.2 x 0.1 cm submitted entirely in 1 cassette(s) /CPE 07/01/2022 0637 Local . 01 Pathologist provided ICD-10: R10.13 . 01 CPT . 055071 Specimen Comment: A courtesy copy of this report has been sent to [phone] Performed at: 01 [facility] [address] [place] [address], [place], [place] [id number] MD Mahesh Moe MD Phone: [phone]
[2022-06-30 09:02] VITALS: BP 133/66; PULSE 72; RESP 16; TEMP 36.2; O2SAT 95; BMI 25.1
[2022-06-30] MEDS: LACTATED RINGERS 1,000 ML 200 ML IV (09:09)
--- NOTE | 2022-06-30 10:24 | PM.PREOP ---
Pre-operative Note Interval Note History & Physical reviewed/Exam performed by Physician: Yes Changes to H&P: No
--- NOTE | 2022-06-30 10:24 | PM.OP.EGD ---
Operative Date/Time/Diagnoses Date of procedure: 06/30/22 Time of procedure: 10:25 Pre-op diagnosis: Abdominal pain Post-op diagnosis: other (Hiatal hernia) Procedure & Clinicians Study performed: Esophagoduodenoscopy Same procedure as scheduled: Yes Indications: Epigastric pain of unknown etiology Surgeon: Sterling Sloan Procedure Notes Procedure in detail: The history and physical was performed/updated and the patient is ASA class is 2. The procedure was discussed in detail with the patient. Potential risks complications including infection, bleeding, missed diagnosis, perforation, need for surgery, and were explained. Their questions were answered and informed consent was obtained. Patient placed in left lateral decubitus position. Time out was performed. Procedural sedation was administered by Anesthesia. A bite block was placed. the scope was inserted into the mouth and advanced through the esophagus and into the stomach. The stomach was without masses, ulcers or gastritis. The pylorus was intubated and the duodenum was normal to the 2nd portion. The scope was retroflexed within the stomach and there was a large hiatal hernia. The scope was withdrawn into the esophagus the Z line was seen at 35 cm from the incisions. Biopsy of the GE junction was performed with forceps. There was no Pimentel's esophagitis, esophageal masses or strictures. Stomach was desufflated and scope removed. The patient tolerated the procedure well and will be discharged when they meet criteria. Specimen(s): other (GE junction, esophagus) Impression: Hiatal hernia Post-procedure Plan for aftercare: Will notify with pathology findings. Please follow-up in the surgical clinic if you have ongoing abdominal pain for discussion hiatal hernia management Disposition: same day surgery
[2022-06-30 10:37] VITALS: BP 154/73; PULSE 73; RESP 22; TEMP 36.1; O2SAT 100
[2022-06-30 10:42] VITALS: BP 157/79; PULSE 72; RESP 16; O2SAT 99
[2022-06-30 10:47] VITALS: BP 150/83; PULSE 67; RESP 16; O2SAT 99
[2022-06-30 10:58] VITALS: BP 157/78; PULSE 66; RESP 6; TEMP 36.2; O2SAT 98
== END 2022-06-30 11:18 | disposition home or self-care (01) ==
PROVIDERS: PCP Family Medicine; Referring Provider Surgery; Visit Provider Surgery
PROC: 0DJ08ZZ Inspection of Upper Intestinal Tract, Via Natural or Artificial Opening Endoscopic (ICD-10-PCS; CPT 43235; principal; 2022-06-30 10:00)
DX: K44.9 Diaphragmatic hernia without obstruction or gangrene (principal)
CPT/HCPCS: 43239; J2704

== ENCOUNTER → 2022-08-03 14:01 | Outpatient (CLI) | payer MEDICARE, OTHER, SELFPAY ==
--- NOTE | 2022-08-03 14:04 | DI.RAD.S_ITS ---
PROCEDURE: XR ANKLE LT MIN 3V INDICATIONS: chronic ankle pain not improved with PT TECHNIQUE: 3 views of the ankle were acquired. COMPARISON: [facility], CR, XR ANKLE RT MIN 3V, 11/15/2017, 10:45. FINDINGS: Bones: No fractures or dislocations. Ankle mortise is normally aligned. No suspicious bony lesions. Soft tissues: No tibiotalar joint effusion. Achilles tendon appears normal. IMPRESSION: Unremarkable left ankle radiographs Approved by: Aleksandar Stanley M.D. on 08/03/2022 at 18:30
== END ==
PROVIDERS: PCP Family Medicine; Referring Provider Family Medicine; Visit Provider Family Medicine
DX: M25.572 Pain in left ankle and joints of left foot (principal); G89.29 Other chronic pain
CPT/HCPCS: 73610

== ENCOUNTER → 2022-09-17 11:29 | Outpatient (CLI) | payer MEDICARE, OTHER, SELFPAY ==
--- NOTE | 2022-09-17 | DI.MG.S_ITS ---
BILATERAL DIGITAL SCREENING MAMMOGRAM 3D/2D WITH CAD: 09/17/2022 CLINICAL: Routine screening. Comparison is made to exams dated: 09/01/2021 mammogram, 04/19/2020 mammogram, and 03/30/2019 mammogram - [facility]. There are scattered areas of fibroglandular density in both breasts (category b / 25%-50% glandular tissue). Current study was also evaluated with a Computer Aided Detection (CAD) system. No significant masses, calcifications, or other findings are seen in either breast. There has been no significant interval change. IMPRESSION: NEGATIVE There is no mammographic evidence of malignancy. A 1 year screening mammogram is recommended. Based on the Tyrer Cuzick model (a risk assessment model) the patient's lifetime risk is 5.2% and her 10 year risk is 2.6%. According to the ACR, ACS, and NCCN guidelines, an annual breast MRI exam along with mammogram is recommended if the patient's lifetime risk is 20% or greater. This exam was interpreted at Station ID: [id number]. NOTE: For mammograms, a report in lay terms will be sent to the patient. Approximately 15% of breast malignancies will not be visualized mammographically. In the management of a palpable breast mass, a negative mammogram must not discourage biopsy of a clinically suspicious lesion. Electronically Signed By: Medhat nguyen/dara:09/17/2022 11:45:47 letter sent: Normal Exam ACR BI-RADS Category 1: Negative [id number]
== END ==
PROVIDERS: PCP Family Medicine; Referring Provider Family Medicine; Visit Provider Family Medicine
DX: Z12.31 Encounter for screening mammogram for malignant neoplasm of breast (principal)
CPT/HCPCS: 77063; 77067

== ENCOUNTER → 2022-12-07 16:22 | Outpatient (CLI) | payer MEDICARE, OTHER, SELFPAY ==
--- NOTE | 2022-12-07 16:26 | DI.RAD.S_ITS ---
PROCEDURE: XR HIP W PEL IF DONE LT 2V INDICATIONS: chronic left hip pain TECHNIQUE: AP pelvis with lateral view(s) of the left hip(s). COMPARISON: [facility], CR, XR HIP W PEL IF DONE RODRIGO 3TO4V, 11/08/2020, 14:32. FINDINGS: Bones: No fractures or dislocations. Uoni-du-yppiflyh left hip joint osteoarthritic changes are seen with joint space narrowing and subchondral sclerosis. No evidence of avascular necrosis of femoral head. Pelvic ring appears intact. No suspicious bony lesions. Soft tissues: The visualized bowel gas pattern is normal. No suspicious soft tissue calcifications. IMPRESSION: Rswg-bh-higaetqi left hip joint osteoarthritis. No pelvic or hip fracture. No evidence of avascular necrosis. Dictated by: Aneudy Monahan M.D. on 12/07/2022 at 17:18 Approved by: Aneudy Monahan M.D. on 12/07/2022 at 17:18
== END ==
PROVIDERS: PCP Family Medicine; Referring Provider Family Medicine; Visit Provider Family Medicine
DX: M16.12 Unilateral primary osteoarthritis, left hip (principal); M25.552 Pain in left hip; E03.9 Hypothyroidism, unspecified; F51.01 Primary insomnia; G89.29 Other chronic pain; M79.7 Fibromyalgia
CPT/HCPCS: 73502

== ENCOUNTER → 2022-12-31 10:01 | Outpatient (CLI) | payer MEDICARE, OTHER, SELFPAY ==
--- NOTE | 2022-12-31 10:02 | DI.RAD.S_ITS ---
PROCEDURE: XR CHEST 2V INDICATIONS: Cough TECHNIQUE: 2 views of the chest were acquired. COMPARISON: [facility], CR, XR CHEST 2V, 02/09/2021, 12:16. [facility], CR, XR CHEST 2V, 03/27/2020, 13:29. FINDINGS: Surgical changes and devices: None. Lungs and pleura: Lungs are clear. No pleural effusions or pneumothorax. Mediastinum: Mediastinal contours are normal. Heart size is normal. Bones and chest wall: No suspicious bony abnormalities. Soft tissues appear unremarkable. IMPRESSION: No acute radiographic abnormality. Dictated by: Medhat Hassan M.D. on 12/31/2022 at 13:19 Approved by: Medhat Hassan M.D. on 12/31/2022 at 13:19
== END ==
PROVIDERS: PCP Family Medicine; Referring Provider Nurse Practitioner Family; Visit Provider Nurse Practitioner Family
DX: R05.9 Cough, unspecified (principal)
CPT/HCPCS: 71046

== ENCOUNTER → 2023-01-01 13:03 | Outpatient (CLI) | payer MEDICARE, OTHER, SELFPAY ==
--- NOTE | 2023-01-01 13:04 | DI.MRI.S_ITS ---
PROCEDURE: MR ANKLE LT WO CON INDICATIONS: chronic ankle pain not improved with PT TECHNIQUE: Noncontrast sagittal T1 spin echo and T2 fast spin echo with fat saturation, axial proton density fast spin echo and T2 fast spin echo with fat saturation, coronal T1 spin echo and T2 fast spin echo with fat saturation through the ankle/hindfoot. COMPARISON: [facility], MR, ANKLE WITHOUT CONTRAST, 02/16/2013, 15:19. FINDINGS: Image quality: Excellent. Bones and joints: Mild midfoot and hindfoot joint osteoarthritic changes are seen with joint space narrowing, subchondral sclerosis and small marginal osteophyte formation more notably involving TMT joints and talonavicular joint. No bone marrow contusions or fractures. No hindfoot coalitions. No osteochondral injuries of the talar dome. No pathologic joint effusions. Medial structures: The posterior tibialis, flexor digitorum longus, and flexor hallucis longus tendons are intact. The posterior tibial neurovascular bundle appears normal within the tarsal tunnel, without extrinsic mass effect. The deep fibers of deltoid ligament are mildly thickened. The superficial fibers of deltoid ligament are intact. The spring ligament is intact. Lateral structures: The anterior talofibular, calcaneofibular, and posterior talofibular ligaments appear thickened. More superiorly, the anterior and posterior tibiofibular ligaments appear mildly thickened with intrasubstance T2 hyperintense signal. The tibiofibular syndesmosis is normal in width at 2 mm or less. The peroneus brevis tendon is intact. The peroneus longus tendon is thickened with small amount of fluid distending tendon sheath and intrasubstance T2 hyperintense signal at the level of distal calcaneus and calcaneocuboid joint. Adjacent bony peroneal tubercle and retrotrochlear prominence are normal in size. The sinus tarsi demonstrates normal fatty signal, without edema, fibrosis, or cyst formation. Visualized sinus tarsi components (cervical ligament, interosseous talocalcaneal ligament, roots of the inferior extensor retinaculum) appear normal. The calcaneonavicular and calcaneocuboid components of the bifurcate ligament appear intact. The dorsal calcaneocuboid ligament appears intact. Anterior structures: The tibialis anterior, extensor hallucis longus, and extensor digitorum longus tendons appear intact. The dorsal talonavicular ligament appears intact. Posterior and plantar structures: Achilles tendon is intact. Medial band of the plantar fascia is mildly thickened at its calcaneal insertion. No abductor digiti quinti muscle atrophy to suggest Cerna neuropathy. IMPRESSION: 1. Mild midfoot and hindfoot joint osteoarthritis. No fracture or dislocation. No osteochondral injuries of talar dome. 2. Very low-grade sprain involving deep fibers of deltoid ligament. 3. Low-grade sprain/intrasubstance partial-thickness tear involving lateral ankle ligaments more notably involving anterior talofibular ligament and anterior tibial fibular ligament. 4. Tendinosis and low-grade intrasubstance partial-thickness tear involving peroneus longus tendon at the level of distal calcaneus and calcaneocuboid joint. 5. Mildly thickened medial band of plantar fascia suggestive of very low-grade plantar fasciitis. Dictated by: Aneudy Monahan M.D. on 01/04/2023 at 8:49 Approved by: Aneudy Monahan M.D. on 01/04/2023 at 8:53
== END ==
PROVIDERS: PCP Family Medicine; Referring Provider Family Medicine; Visit Provider Family Medicine
DX: S93.492A Sprain of other ligament of left ankle, initial encounter (principal); S93.432A Sprain of tibiofibular ligament of left ankle, initial encounter; M19.072 Primary osteoarthritis, left ankle and foot; M79.7 Fibromyalgia; M25.572 Pain in left ankle and joints of left foot; E03.9 Hypothyroidism, unspecified; G89.29 Other chronic pain
CPT/HCPCS: 73721

== ENCOUNTER → 2023-02-11 12:39 | Outpatient (CLI) | payer MEDICARE, OTHER, SELFPAY ==
[2023-02-11 13:16] LABS: Add Manual Diff / Slide Review NO; Basophils Absolute Auto 100 /uL (0-100); Basophils Percent Auto 1.3 % (0-2); Eosinophils Absolute Auto 200 /uL (0-450); Eosinophils Percent Auto 3.4 % (2-4); Hematocrit 39.1 % (36-46); Hemoglobin 13.4 g/dL (12.0-16.0); Lymphocytes Absolute Auto 1700 /uL (1100-4500); Mean Corpuscular HGB Conc 34.3 % (30-36); Mean Corpuscular Hemoglobin 29.4 PG (26-34); Mean Corpuscular Volume 85.8 fL (80-100); Monocytes Absolute Auto 300 /uL (0-900); Monocytes Percent Auto 7.4 % (3-14); Neutrophils Absolute Auto 2200 /uL (1500-7000); Neutrophils Percent Auto 49.9 % (50-75); Platelet Count 259 X10^3/uL (150-400); Red Blood Cell Count 4.56 X10^6/uL (4.0-5.2); Red Cell Distribution Width 12.9 % (11.6-14.8); White Blood Cell Count 4.5 X10^3/uL (4.5-11.0)
[2023-02-11 13:40] LABS: Alanine Aminotransferase 21 IU/L (<35); Albumin 4.4 g/dL (3.5-5.0); Albumin Globulin Ratio 1.5 (1.0-2.8); Alkaline Phosphatase 59 U/L (38-126); Aspartate Aminotransferase 27 IU/L (14-36); BUN Creatinine Ratio 30.6 (6-22); Bilirubin Total 0.7 mg/dL (0.2-1.3); Blood Urea Nitrogen 26 mg/dL (7-17); Calcium 10.1 mg/dL (8.4-10.2); Carbon Dioxide 27 mmol/L (22-32); Chloride 102 mmol/L (98-107); Cholesterol 261 mg/dL (140-199); Estimated Glomerular Filt Rate > 60 mL/min (>60); Glucose 70 mg/dL (80-110); HDL Cholesterol 62 mg/dL (40-60); HEMOLYSIS < 15 (0-50); LDL Cholesterol Calculated 145 mg/dL (<100); Potassium 4.1 mmol/L (3.4-5.1); Sodium 137 mmol/L (137-145); Total Protein 7.4 g/dL (6.3-8.2); Triglycerides 272 mg/dL (35-150)
== END ==
PROVIDERS: PCP Family Medicine; Referring Provider Family Medicine; Visit Provider Family Medicine
DX: E03.9 Hypothyroidism, unspecified (principal); M79.7 Fibromyalgia; K21.9 Gastro-esophageal reflux disease without esophagitis; F51.01 Primary insomnia
CPT/HCPCS: 36415; 80053; 80061; 85025

== ENCOUNTER → 2023-03-12 12:25 | Outpatient (CLI) | payer MEDICARE, OTHER, SELFPAY ==
[2023-03-12 13:19] LABS: Erythrocyte Sedimentation Rate 21 MM/HR (0-20)
[2023-03-12 13:47] LABS: Alanine Aminotransferase 19 IU/L (<35); Albumin 4.1 g/dL (3.5-5.0); Albumin Globulin Ratio 1.3 (1.0-2.8); Alkaline Phosphatase 65 U/L (38-126); Aspartate Aminotransferase 26 IU/L (14-36); BUN Creatinine Ratio 28.2 (6-22); Bilirubin Total 0.9 mg/dL (0.2-1.3); Blood Urea Nitrogen 22 mg/dL (7-17); C-Reactive Protein Quant 0.6 mg/dL (<1.0); Carbon Dioxide 23 mmol/L (22-32); Chloride 103 mmol/L (98-107); Cholesterol 242 mg/dL (140-199); Estimated Glomerular Filt Rate > 60 mL/min (>60); Globulin 3.2 g/dL (1.7-4.1); Glucose 101 mg/dL (80-110); HDL Cholesterol 52 mg/dL (40-60); HEMOLYSIS < 15 (0-50); LDL Cholesterol Calculated 149 mg/dL (<100); Potassium 4.4 mmol/L (3.4-5.1); Sodium 134 mmol/L (137-145); Total Protein 7.3 g/dL (6.3-8.2); Triglycerides 206 mg/dL (35-150)
[2023-03-15 16:42] LABS: Hep C Virus Ab w/Reflex Quant NEGATIVE s/c (NEGATIVE)
[2023-03-22 17:57] LABS: HLA B27 Negative (.)
== END ==
PROVIDERS: PCP Family Medicine; Referring Provider Nurse Practitioner Family; Visit Provider Nurse Practitioner Family
DX: E03.9 Hypothyroidism, unspecified (principal); M54.50 Low back pain, unspecified; M79.7 Fibromyalgia; Z11.59 Encounter for screening for other viral diseases; Z13.220 Encounter for screening for lipoid disorders; Z13.1 Encounter for screening for diabetes mellitus
CPT/HCPCS: 80053; 80061; 81374; 85651; 86140; 86803

== ENCOUNTER → 2023-05-03 11:06 | Outpatient (CLI) | payer MEDICARE, OTHER, SELFPAY ==
--- NOTE | 2023-05-03 11:07 | DI.RAD.S_ITS ---
PROCEDURE: XR LUMBAR SPINE MIN 4V INDICATIONS: LOW BACK PAIN TECHNIQUE: 5 views of the lumbar spine were acquired, including bilateral oblique views. COMPARISON: [facility], [place], XR LUMBAR SPINE 2-3V, 11/08/2020, 14:32. [facility], [place], L-SPINE 2-3 VIEWS, 06/05/2016, 13:04. FINDINGS: Bones: 5 nonrib-bearing vertebrae are present. Convex left scoliosis, Henry angle of 12 degrees. Grade 1 retrolisthesis of L2 on L3 and L1 on L2. Mild disc height loss at all levels. Facet arthrosis of L3 through S1. Soft tissues: Overlying bowel gas pattern is normal. No suspicious soft tissue calcifications. Oblique images: No pars defects. IMPRESSION: Mild, multilevel degenerative disc disease and lower lumbar facet arthrosis. Dictated by: Gregorio Funes M.D. on 05/03/2023 at 15:07 Approved by: Gregorio Funes M.D. on 05/03/2023 at 15:11
== END ==
PROVIDERS: PCP Family Medicine; Referring Provider Anesthesiology; Visit Provider Anesthesiology
DX: M47.26 Other spondylosis with radiculopathy, lumbar region (principal); M47.27 Other spondylosis with radiculopathy, lumbosacral region; M51.16 Intervertebral disc disorders with radiculopathy, lumbar region; M54.50 Low back pain, unspecified; M79.7 Fibromyalgia; M54.9 Dorsalgia, unspecified
CPT/HCPCS: 72110; 99214

== ENCOUNTER 2023-07-21 12:47 | Outpatient (CLI) | payer MEDICARE, OTHER, SELFPAY ==
[2023-07-21] VITALS (7 sets, daily range): BP systolic 137–178; BP diastolic 67–84; PULSE 64–71; RESP 16–20; TEMP 36.1; O2SAT 98–100
--- NOTE | 2023-07-21 13:30 | DI.RAD.S_ITS ---
PROCEDURE: PAIN L/S FACET INJ/BLK 1ST RODRIGO INDICATIONS: SPONDYLOSIS COMPARISON: [facility], CR, XR LUMBAR SPINE MIN 4V, 05/03/2023, 11:39. FINDINGS: Fluoroscopic spot filming was performed to verify placement of spinal needles at the bilateral L3, L4, L5 level(s), as labeled on the films. Appropriate location(s) of the needle tip(s) was confirmed by injection of iodinated contrast. IMPRESSION: Intraoperative guidance provided. Dictated by: Wilner Meadows M.D. on 07/21/2023 at 17:08 Approved by: Wilner Meadows M.D. on 07/21/2023 at 17:08
[2023-07-21] MEDS: MIDAZOLAM 2 MG/2 ML VIAL 1 MG IV (13:55)
[2023-07-21] MEDS: iopamidoL 15 ML VIAL 3 ML INJ (13:58)
[2023-07-21] MEDS: BUPIVACAINE 0.5% (PF) 10 ML VIAL 5 ML INJ (13:59)
--- NOTE | 2023-07-21 16:13 | P.PCN_ITS ---
Date/Time/Diagnoses Date of procedure: 07/21/23 Time of procedure: 13:30 Procedure Notes Physician: Sancho Weir Total Fluoroscopy time (seconds): 13 Total sedation minutes: 12 Procedure in detail & Post-procedure care: Bilateral L3, 4, 5 Lumbar Medial Branch Blocks Indications: Lili is presenting for treatment of lumbar spondylosis with low back pain. Preoperative diagnosis: Lumbar spondylosis Postoperative diagnosis: Same Pre-procedure History: Patient demonstrates today moderate to severe non- radicular back pain without neurologic deficit aggravated by hyperextension yes Back pain greater than leg pain? yes Patient today has tenderness over the suspected joint(s) yes History of post-traumatic injury? no Hypertrophic arthropathy yes Back pain associated with suspected motion segment instability, hypermobility or pseudoarthrosis no Focused Examination: Ax3 Mood and affect are normal Vital Signs: VSS ASA: 2 Consent: Following review of allergies and potential side effects/complications, including, but not necessarily limited to, infection, allergic reaction, local tissue breakdown, stroke, temporary or permanent nerve injury, paralysis, and possible , the patient indicated that they understood and agreed to proceed.? An informed consent document was signed by the patient, witnessed by a nurse and placed in the patient's chart.? Additionally, other treatment options including medications and physical therapy were reviewed with the patient. All questions were answered. Site was then marked. Anesthesia: After review of previous anesthetic history and IV conscious sedation, the patient was deemed safe to proceed with today's procedure with IV conscious sedation. IV sedation was accomplished with midazolam 1 mg administered by the RN after order by Dr. Weir. Sedation was titrated to patient comfort during the course of the procedure. Patient remained responsive to all verbal commands. Position: Prone Monitoring: NIBP, Pulse oximetry, 3 lead EKG Needle used: 22 ga 3.5 inch spinal needle Contrast: Isovue 300M Injectate: 0.5% bupivacaine 1 mL per site Procedure: The patient was brought into the procedure room and positioned into the prone position. Skin was prepped with a Chloraprep solution, allowed to air dry, and then draped in sterile fashion.? The right L4-5 and L5-S1 facet joints were visually identified with fluoroscopy. Lidocaine 1% was used to anesthetize the skin over each target destination with a 25ga needle. A 22 ga, 3.5 inch spinal needle was advanced to the location of the medial branch at the junction of the superior articular process and the transverse process at L4,5 and the base of the SAP of the sacrum using intermittent fluoroscopy in the AP view. Isovue 300M contrast 0.2ml was injected at each level outlining the medial borders for each level and the base of the SAP of the sacrum in the AP and lateral views. There was no evidence of vascular or intrathecal uptake. The above injectate was slowly injected at each target destination. The left L4-5 and L5-S1 facet joints were visually identified with fluoroscopy. Lidocaine 1% was used to anesthetize the skin over each target destination with a 25ga needle. A 22 ga, 3.5 inch spinal needle was advanced to the location of the medial branch at the junction of the superior articular process and the transverse process at L4,5 and the base of the SAP of the sacrum using intermittent fluoroscopy in the AP view. Isovue 300M contrast 0.2ml was injected at each level outlining the medial borders for each level and the base of the SAP of the sacrum in the AP and lateral views. There was no evidence of vascular or intrathecal uptake. The above injectate was slowly injected at each target destination. At the end of the procedure the needles were withdrawn and Band- Aids were applied for a dressing. Post Procedure: Patient was taken to the recovery and monitored. The patient was provided a Pain Log to continue to record the patient's response to the target- specific procedure prior to the patient's follow-up visit with the referring physician. Patient was stable upon discharge. Detailed post procedure instructions were provided. Patient was asked to call in the event of worsening pain, fever, weakness, numbness or bladder or bowel incontinence. Based on the medial branches blocked today, if the patient meets insurance criteria for radiofrequency, the treatment should result in the denervation of the bilateral L4-5 and L5-S1 facet joint nerves. We would expect to denervate a total of 4 facets during the radiofrequency ablation.
== END 2023-07-21 14:30 | disposition home or self-care (01) ==
PROVIDERS: PCP Family Medicine; Referring Provider Anesthesiology; Visit Provider Anesthesiology
DX: M47.816 Spondylosis without myelopathy or radiculopathy, lumbar region (principal)
CPT/HCPCS: 64493; 64494; 99152; J2250

== ENCOUNTER 2023-08-18 14:34 | Outpatient (CLI) | payer MEDICARE, OTHER, SELFPAY ==
[2023-08-18] VITALS (8 sets, daily range): BP systolic 111–150; BP diastolic 58–70; PULSE 71–76; RESP 18–22; TEMP 36.4; O2SAT 95–100
--- NOTE | 2023-08-18 15:00 | DI.RAD.S_ITS ---
PROCEDURE: PAIN L/S FACET INJ/BLK 1ST RODRIGO INDICATIONS: Bilateral L3, 4, 5 MBB COMPARISON: [facility], , PAIN L/S FACET INJ/BLK 1ST RODRIGO, 07/21/2023, 13:57. FINDINGS: Fluoroscopic spot filming was performed to verify placement of spinal needles at the bilateral L3, L4, L5 level(s), as labeled on the films. Appropriate location(s) of the needle tip(s) was confirmed by injection of iodinated contrast. IMPRESSION: Intraoperative guidance provided. Dictated by: Wilner Meadows M.D. on 08/19/2023 at 8:26 Approved by: Wilner Meadows M.D. on 08/19/2023 at 8:27
[2023-08-18] MEDS: MIDAZOLAM 2 MG/2 ML VIAL 1 MG IV (15:03)
[2023-08-18] MEDS: iopamidoL 15 ML VIAL 3 ML INJ (15:07)
[2023-08-18] MEDS: LIDOCAINE 2% INJ MDV 20ML 5 ML INJ (15:08)
--- NOTE | 2023-08-18 16:45 | P.PCN_ITS ---
Date/Time/Diagnoses Date of procedure: 08/18/23 Time of procedure: 15:00 Procedure Notes Physician: Sancho Weir Total Fluoroscopy time (seconds): 21 Total sedation minutes: 17 Procedure in detail & Post-procedure care: Bilateral L3, 4, 5 Lumbar Medial Branch Blocks Indications: Lili is presenting for treatment of lumbar spondylosis with low back pain. Preoperative diagnosis: Lumbar spondylosis Postoperative diagnosis: Same Pre-procedure History: Patient demonstrates today moderate to severe non- radicular back pain without neurologic deficit aggravated by hyperextension yes Back pain greater than leg pain? yes Patient today has tenderness over the suspected joint(s) yes History of post-traumatic injury? no Hypertrophic arthropathy yes Back pain associated with suspected motion segment instability, hypermobility or pseudoarthrosis no Focused Examination: Ax3 Mood and affect are normal Vital Signs: VSS ASA: 2 Consent: Following review of allergies and potential side effects/complications, including, but not necessarily limited to, infection, allergic reaction, local tissue breakdown, stroke, temporary or permanent nerve injury, paralysis, and possible , the patient indicated that they understood and agreed to proceed.? An informed consent document was signed by the patient, witnessed by a nurse and placed in the patient's chart.? Additionally, other treatment options including medications and physical therapy were reviewed with the patient. All questions were answered. Site was then marked. Anesthesia: After review of previous anesthetic history and IV conscious sedation, the patient was deemed safe to proceed with today's procedure with IV conscious sedation. IV sedation was accomplished with midazolam 1 mg administered by the RN after order by Dr. Weir. Sedation was titrated to patient comfort during the course of the procedure. Patient remained responsive to all verbal commands. Position: Prone Monitoring: NIBP, Pulse oximetry, 3 lead EKG Needle used: 22 ga 3.5 inch spinal needle Contrast: Isovue 300M Injectate: 2% lidocaine 1 mL per site Procedure: The patient was brought into the procedure room and positioned into the prone position. Skin was prepped with a Chloraprep solution, allowed to air dry, and then draped in sterile fashion.? The right L4-5 and L5-S1 facet joints were visually identified with fluoroscopy. Lidocaine 1% was used to anesthetize the skin over each target destination with a 25ga needle. A 22 ga, 3.5 inch spinal needle was advanced to the location of the medial branch at the junction of the superior articular process and the transverse process at L4,5 and the base of the SAP of the sacrum using intermittent fluoroscopy in the AP view. Isovue 300M contrast 0.2ml was injected at each level outlining the medial borders for each level and the base of the SAP of the sacrum in the AP and lateral views. There was no evidence of vascular or intrathecal uptake. The above injectate was slowly injected at each target destination. The left L4-5 and L5-S1 facet joints were visually identified with fluoroscopy. Lidocaine 1% was used to anesthetize the skin over each target destination with a 25ga needle. A 22 ga, 3.5 inch spinal needle was advanced to the location of the medial branch at the junction of the superior articular process and the transverse process at L4,5 and the base of the SAP of the sacrum using intermittent fluoroscopy in the AP view. Isovue 300M contrast 0.2ml was injected at each level outlining the medial borders for each level and the base of the SAP of the sacrum in the AP and lateral views. There was no evidence of vascular or intrathecal uptake. The above injectate was slowly injected at each target destination. At the end of the procedure the needles were withdrawn and Band- Aids were applied for a dressing. Post Procedure: Patient was taken to the recovery and monitored. The patient was provided a Pain Log to continue to record the patient's response to the target- specific procedure prior to the patient's follow-up visit with the referring physician. Patient was stable upon discharge. Detailed post procedure instructions were provided. Patient was asked to call in the event of worsening pain, fever, weakness, numbness or bladder or bowel incontinence. Based on the medial branches blocked today, if the patient meets insurance criteria for radiofrequency, the treatment should result in the denervation of the bilateral L4-5 and L5-S1 facet joint nerves. We would expect to denervate a total of 4 facets during the radiofrequency ablation.
== END 2023-08-18 15:40 | disposition home or self-care (01) ==
LOC: RAD 14:34
PROVIDERS: Family Provider Family Medicine; PCP Family Medicine; Referring Provider Anesthesiology; Visit Provider Anesthesiology
DX: M47.816 Spondylosis without myelopathy or radiculopathy, lumbar region (principal)
CPT/HCPCS: 64493; 64494; 99152; J2250

== ENCOUNTER → 2023-09-09 13:29 | Outpatient (CLI) | payer MEDICARE, OTHER, SELFPAY | LOC: PHYS 13:30 | PROVIDERS: Family Provider Family Medicine; PCP Family Medicine; Referring Provider Family Medicine; Visit Provider Family Medicine | DX: G56.01 Carpal tunnel syndrome, right upper limb (principal) | CPT/HCPCS: 95886; 95910 ==

== ENCOUNTER → 2023-09-20 11:01 | Outpatient (CLI) | payer MEDICARE, OTHER, SELFPAY ==
--- NOTE | 2023-09-20 11:02 | DI.MG.S_ITS ---
BILATERAL DIGITAL SCREENING MAMMOGRAM 3D/2D WITH CAD: 09/20/2023 CLINICAL: Routine screening. Comparison is made to exams dated: 09/17/2022 mammogram, 09/01/2021 mammogram, and 04/19/2020 mammogram - [facility]. There are scattered areas of fibroglandular density in both breasts (category b / 25%-50% glandular tissue). Current study was also evaluated with a Computer Aided Detection (CAD) system. No significant masses, calcifications, or other findings are seen in either breast. There has been no significant interval change. IMPRESSION: NEGATIVE There is no mammographic evidence of malignancy. A 1 year screening mammogram is recommended. Based on the Tyrer Cuzick model (a risk assessment model) the patient's lifetime risk is 4.9% and her 10 year risk is 2.6%. According to the ACR, ACS, and NCCN guidelines, an annual breast MRI exam along with mammogram is recommended if the patient's lifetime risk is 20% or greater. This exam was interpreted at Station ID: [id number]. NOTE: For mammograms, a report in lay terms will be sent to the patient. Approximately 15% of breast malignancies will not be visualized mammographically. In the management of a palpable breast mass, a negative mammogram must not discourage biopsy of a clinically suspicious lesion. Electronically Signed By: Medhat nguyen/dara:09/22/2023 09:14:49 letter sent: Normal Exam ACR BI-RADS Category 1: Negative 3341F
== END ==
PROVIDERS: Family Provider Family Medicine; PCP Family Medicine; Referring Provider Family Medicine; Visit Provider Family Medicine
DX: Z12.31 Encounter for screening mammogram for malignant neoplasm of breast (principal); R92.323 Mammographic fibroglandular density, bilateral breasts
CPT/HCPCS: 77063; 77067

== ENCOUNTER 2023-10-22 13:27 | Emergency (ER) | payer MEDICARE, OTHER, SELFPAY ==
[2023-10-22] VITALS (9 sets, daily range): BP systolic 140–173; BP diastolic 65–78; PULSE 61–69; RESP 17–29; TEMP 36.6; O2SAT 91–98; BMI 25.1
--- NOTE | 2023-10-22 14:35 | DI.RAD.S_ITS ---
PROCEDURE: XR CHEST 1V INDICATIONS: chest pain TECHNIQUE: One view of the chest was acquired. COMPARISON: [facility], CR, XR CHEST 2V, 12/31/2022, 10:07. [facility], CR, XR CHEST 2V, 02/09/2021, 12:16. FINDINGS: Surgical changes and devices: None. Lungs and pleura: Lungs are clear. No pleural effusions or pneumothorax. Mediastinum: Mediastinal contours appear normal. Heart size is normal. Bones and chest wall: No suspicious bony lesions. Overlying soft tissues appear unremarkable. IMPRESSION: No acute cardiopulmonary abnormality is seen. Dictated by: Antelmo Bradley M.D. on 10/22/2023 at 15:14 Approved by: Antelmo Bradley M.D. on 10/22/2023 at 15:14
--- NOTE | 2023-10-22 14:35 | EKG_ITS ---
[facility] [address] [place] [address] Test Date: 2023-10-22 Pat Name: Lili Walls Department: Room: Gender: Female [employer]: : 1955 Requested By: Order Number: [id number] Reading MD: Jere Cisse MD Measurements Intervals [place] Rate: 70 P: 69 NH: 130 QRS: 26 QRSD: 84 T: -11 QT: 384 QTc: 414 Interpretive Statements Normal sinus rhythm Nonspecific T wave abnormality Electronically Signed On 10-23-2023 22:33:54 PDT by Jere Cisse MD
[2023-10-22 14:51] LABS: Add Manual Diff / Slide Review NO; Basophils Absolute Auto 100 /uL (0-100); Basophils Percent Auto 1.2 % (0-2); Eosinophils Absolute Auto 100 /uL (0-450); Eosinophils Percent Auto 2.9 % (2-4); Hemoglobin 13.1 g/dL (12.0-16.0); Lymphocytes Absolute Auto 1500 /uL (1100-4500); Lymphocytes Percent Auto 33.9 % (25-40); Mean Corpuscular HGB Conc 34.5 % (30-36); Mean Corpuscular Hemoglobin 29.3 PG (26-34); Mean Corpuscular Volume 84.8 fL (80-100); Monocytes Absolute Auto 300 /uL (0-900); Monocytes Percent Auto 7.6 % (3-14); Neutrophils Absolute Auto 2400 /uL (1500-7000); Neutrophils Percent Auto 54.4 % (50-75); Platelet Count 266 X10^3/uL (150-400); Red Blood Cell Count 4.47 X10^6/uL (4.0-5.2); White Blood Cell Count 4.4 X10^3/uL (4.5-11.0)
[2023-10-22 14:57] LABS: HEMOLYSIS < 15 (0-50)
[2023-10-22 14:58] LABS: Prothrombin Time 11.7 SECONDS (9.4-12.5)
[2023-10-22 15:01] LABS: PTT Partial Thromboplastin Tim 36 SECONDS (25.1-36.5)
[2023-10-22 15:15] LABS: Alanine Aminotransferase 20 IU/L (<35); Albumin 4.3 g/dL (3.5-5.0); Albumin Globulin Ratio 1.3 (1.0-2.8); Alkaline Phosphatase 48 U/L (38-126); Aspartate Aminotransferase 27 IU/L (14-36); BUN Creatinine Ratio 21.1 (6-22); Bilirubin Total 0.9 mg/dL (0.2-1.3); Blood Urea Nitrogen 19 mg/dL (7-17); Calcium 9.4 mg/dL (8.4-10.2); Carbon Dioxide 26 mmol/L (22-32); Chloride 104 mmol/L (98-107); Creatine Kinase 79 U/L (30-135); Estimated Glomerular Filt Rate > 60 mL/min (>60); Globulin 3.3 g/dL (1.7-4.1); Glucose 101 mg/dL (80-110); Lipase 116 U/L (23-300); Magnesium 1.8 mg/dL (1.6-2.3); NT-proBNP (BNP-Adult 18+) 92 pg/mL (<125); Potassium 3.9 mmol/L (3.4-5.1); Sodium 134 mmol/L (137-145); Total Protein 7.6 g/dL (6.3-8.2); Troponin I < 0.012 ng/mL (0.01-0.034)
[2023-10-22] MEDS: SODIUM CHLORIDE 0.9% 1,000 ML 1000 ML IV (15:39)
--- NOTE | 2023-10-22 16:52 | ED_ITS ---
HPI - Dizziness General Chief Complaint: Dizziness Stated Complaint: high BP, light headed, dizzy Time Seen by Provider: 10/22/23 15:24 Source: patient Mode of arrival: Ambulatory History of Present Illness HPI Narrative: Patient is a 68-year-old female history of fibromyalgia, restless leg hypothyroid hyperlipidemia presenting today with elevated blood pressure and dizziness. She states that for the last couple of days she has been extremely fatigued and tired. She has not sleeping well at night she is actually wanting sleep study because it has been an ongoing issue. She checked her blood pressure home it was in the 160s when she got up to ground she got a little dizzy lightheaded. She did not pass out. She denies any chest pain or palpitations. She has not had any fever or chills. She denies abdominal pain nausea or vomiting Related Data Home Medications Medication Instructions Recorded Confirmed multivitamin (Multiple Vitamins 1 tab PO QDAY ##0 06/02/16 08/24/23 tablet) cholecalciferol (vitamin D3) 25 2,000 unit PO DAILY 08/11/18 08/24/23 mcg (1,000 unit) capsule levothyroxine 125 mcg tablet 62.5 mcg PO DAILY 07/20/23 08/24/23 Previous Rx's Medication Instructions Recorded [Massage Therapy] 2XMONTH ##0 12/19/15 naproxen 500 mg tablet 500 mg PO BID #60 tabs 06/23/21 pantoprazole 40 mg tablet,delayed See Rx Instructions .Route 09/28/22 release .COMPLEX #90 tabs pramipexole 0.25 mg tablet See Rx Instructions PO QPM PRN 12/07/22 restless leg(s) #90 tabs tizanidine 4 mg tablet See Rx Instructions PO BEDTIME #90 12/07/22 tabs tramadol 50 mg tablet 50 mg PO BID PRN pain #60 tabs 06/15/23 rosuvastatin 10 mg tablet 10 mg PO DAILY #90 tabs 07/20/23 oxycodone 5 mg tablet 5 mg PO TID PRN pain #10 tabs 08/24/23 Allergies Allergy/AdvReac Type Severity Reaction Status Date / Time cefaclor [CEFACLOR] Allergy Severe swelling, Verified 07/26/23 13:01 stomach pain codeine [CODEINE] Allergy Severe swelling Verified 07/26/23 13:01 and rash Fish Containing Products Allergy Severe tongue and Verified 07/26/23 13:01 [FISH CONTAINING PRODUCTS] mouth swelling from seafood venom-honey bee Allergy Intermediate swelling Verified 07/26/23 13:01 [BEE VENOM (HONEY BEE)] cortisone [CORTISONE] AdvReac Intermediate increased Verified 07/26/23 13:01 pain and swelling ropinirole AdvReac Intermediate Made Verified 07/26/23 13:01 restless leg symptoms worse duloxetine [DULOXETINE] AdvReac Mild nausea Verified 07/26/23 13:01 Patient History Medical History Lumbar degenerative disc disease Lumbar facet arthropathy Hyperlipidemia Lumbar radiculopathy Myofascial pain Lumbar spondylosis Dorsalgia Large hiatal hernia Plantar fasciitis Upper respiratory tract infection Difficulty in swallowing Bilateral hip pain Bunionette of right foot Chronic low back pain with right-sided sciatica Abnormal chest CT (03/2020) Shoulder pain Recurrent aphthous ulcer Right arm pain Muscle spasm Restless leg syndrome Lumbar stenosis (Unknown) DDD (degenerative disc disease), cervical (Unknown) Hypersomnia (~2013) Restless leg syndrome (~2013) Hypothyroidism (Unknown) Elbow deformity (Unknown) Scoliosis (Unknown) Fibromyalgia (Unknown) Acquired hypothyroidism Primary insomnia (10/26/13) Degeneration of intervertebral disc of cervical region (07/31/13) Osteopenia (04/07/11) Surgical History Status post surgery (08/06/08) Social History household members: spouse Smoking Status: Never smoker second hand exposure: No alcohol intake: never substance use type: does not use Smoking Status: Never smoker Substance Use Type: does not use Exam Initial Vital Signs Initial Vital Signs: Vital Signs Blood Pressure 173/78 H 10/22/23 14:24 GENERAL: Alert very pleasant 68-year-old and in no acute distress. HEENT: Head atraumatic,EOMI, pupils reactive, face symmetric, moist mucous membranes CARDIOVASCULAR: Regular rate and rhythm without murmurs, rubs or gallops. RESPIRATORY: Breath sounds equal bilaterally, no wheezes rales or rhonchi. ABDOMEN: Soft, nontender. Normoactive bowel sounds all 4 quadrants. No guarding or rebound. EXTREMITIES: Normal range of motion, no clubbing or edema. Neurovascularly intact NEUROLOGICAL: Alert and oriented x4.Normal gait and speech. Cranial nerves II through XII grossly intact. Good etaesu-pb-ohpb, good wcde-ac-cydv, strength equal bilaterally, no dysarthria or aphasia, sensation in tact to soft touch bilaterally, no visual changes, no facial droop SKIN: Warm, dry, no laceration, no petechiae, no rashes or lesions. Scores NIH Stroke Scale Level of Conciousness: Alert, keenly responsive Ask month/age: Answers both questions correctly. Open/close eyes, close hand: Performs both tasks correctly Best gaze horizontal: Normal Visual rinaldi: No visual loss Facial palsy: Normal symetrical movement Left arm drift: No drift for full 10 sec Right arm drift: No drift for full 10 sec Left leg drift: No drift for full 5 sec Right leg drift: No drift for full 5 sec Limb ataxia: Absent Sensory on face/arms/legs: Normal, no sensory loss Best language: No aphasia, normal Dysarthria: Normal Extinction or inattention: No abnormality Total NIH Stroke scale score: 0 Course Orders Ordered: ED Orders 10/22/23 14:35 XR chest 1V Stat EKG-12 Lead Stat 10/22/23 14:40 Complete Blood Count AUTO DIFF Stat Comprehensive Metabolic Panel Stat Lipase Stat Magnesium Stat NT-proBNP (BNP-Adult 18+) Stat PTT Partial Thromboplastin Feliberto Stat Prothrombin Time INR Stat Troponin & CK Cardiac Panel Stat Discontinued Medications Sodium Chloride (Normal Saline 0.9%) 1,000 mls @ 1,000 mls/hr IV BOLUS ONE Stop: 10/22/23 16:23 Last Infusion: 10/22/23 17:25 Dose: Infused Documented By: Admin: 10/22/23 15:39 Dose: 1,000 mls/hr Documented By: BALBINA Vital Signs Vital signs: Vital Signs - 8 hr 10/22/23 14:24 10/22/23 14:25 10/22/23 14:25 Temperature 98 F Pulse Rate 68 69 Respiratory Rate 18 Blood Pressure 173/78 H 173/78 H Pulse Oximetry 97 96 Oxygen Delivery Method Room Air 10/22/23 14:30 10/22/23 14:30 10/22/23 15:00 Temperature Pulse Rate 69 66 Respiratory Rate 20 Blood Pressure 140/65 Pulse Oximetry 91 96 Oxygen Delivery Method Room Air 10/22/23 15:00 10/22/23 15:30 10/22/23 15:30 Temperature Pulse Rate 66 Respiratory Rate 20 Blood Pressure 149/72 H 158/75 H Pulse Oximetry 97 Oxygen Delivery Method Room Air 10/22/23 16:00 10/22/23 16:00 10/22/23 16:13 Temperature Pulse Rate 61 64 Respiratory Rate 17 19 Blood Pressure 166/74 H Pulse Oximetry 97 98 Oxygen Delivery Method 10/22/23 16:13 10/22/23 16:30 10/22/23 16:30 Temperature Pulse Rate 63 Respiratory Rate 18 Blood Pressure 157/71 H 154/68 H Pulse Oximetry 96 Oxygen Delivery Method 10/22/23 17:00 10/22/23 17:00 Temperature Pulse Rate 64 Respiratory Rate 29 H Blood Pressure 152/73 H Pulse Oximetry 98 Oxygen Delivery Method MDM - Dizziness Lab Data 10/22/23 14:40 10/22/23 14:40 Labs: Lab Results 10/22/23 Range/Units 14:40 WBC 4.4 L (4.5-11.0) X10^3/uL RBC 4.47 (4.0-5.2) X10^6/uL Hgb 13.1 (12.0-16.0) g/dL Hct 38.0 (36-46) % MCV 84.8 (80-100) fL MCH 29.3 (26-34) PG MCHC 34.5 (30-36) % RDW 13.0 (11.6-14.8) % Plt Count 266 (150-400) X10^3/uL Neut % (Auto) 54.4 (50-75) % Lymph % (Auto) 33.9 (25-40) % [place] % (Auto) 7.6 (3-14) % Eos % (Auto) 2.9 (2-4) % Baso % (Auto) 1.2 (0-2) % Neut # (Auto) 2400 (4282-0032) /uL Lymph # (Auto) 1500 (2541-9196) /uL [place] # (Auto) 300 (0-900) /uL Eos # (Auto) 100 (0-450) /uL Baso # (Auto) 100 (0-100) /uL PT 11.7 (9.4-12.5) SECONDS INR 1.0 (0.9-1.3) APTT 36 (25.1-36.5) SECONDS Sodium 134 L (137-145) mmol/L Potassium 3.9 (3.4-5.1) mmol/L Chloride 104 (98-107) mmol/L Carbon Dioxide 26 (22-32) mmol/L BUN 19 H (7-17) mg/dL Creatinine 0.90 (0.52-1.04) mg/dL Estimated GFR > 60 (>60) mL/min BUN/Creatinine Ratio 21.1 (6-22) Glucose 101 (80-110) mg/dL Calcium 9.4 (8.4-10.2) mg/dL Magnesium 1.8 (1.6-2.3) mg/dL Total Bilirubin 0.9 (0.2-1.3) mg/dL AST 27 (14-36) IU/L ALT 20 (<35) IU/L Alkaline Phosphatase 48 (38-126) U/L Total Creatine Kinase 79 (30-135) U/L Troponin I < 0.012 (0.01-0.034) ng/mL NT-Pro-B Natriuret Pep 92 (<125) pg/mL Total Protein 7.6 (6.3-8.2) g/dL Albumin 4.3 (3.5-5.0) g/dL Globulin 3.3 (1.7-4.1) g/dL Albumin/Globulin Ratio 1.3 (1.0-2.8) Lipase 116 (23-300) U/L Imaging Data Chest x-ray: Radiologist's Impression: PROCEDURE: XR CHEST 1V INDICATIONS: chest pain TECHNIQUE: One view of the chest was acquired. COMPARISON: [facility], , XR CHEST 2V, 12/31/2022, 10:07. [facility], , XR CHEST 2V, 02/09/2021, 12:16. FINDINGS: Surgical changes and devices: None. Lungs and pleura: Lungs are clear. No pleural effusions or pneumothorax. Mediastinum: Mediastinal contours appear normal. Heart size is normal. Bones and chest wall: No suspicious bony lesions. Overlying soft tissues appear unremarkable. IMPRESSION: No acute cardiopulmonary abnormality is seen. Dictated by: Antelmo Bradley M.D. on 10/22/2023 at 15:14 Approved by: Antelmo Bradley M.D. on 10/22/2023 at 15:14 ECG Data Attestation: I personally reviewed and interpreted this ECG as follows: Prior ECG tracings: available for review Interpretation: Normal sinus rhythm rate 70 HI interval 130 QRS [address] depression in lead 3 and AVF consistent from previous EKGs in [address] elevations MDM Narrative Medical decision making narrative: Patient 68-year-old female history of restless leg fibromyalgia presenting today with some increased sleepiness and elevated blood pressure along with some dizziness. Sounds like the dizziness is more when she stands up and positional. It has completely resolved after 1 L of fluids. She has no focal deficits and NIH stroke scale of 0. She was worried because her blood pressure was 165 couple of times at home. She does not have a history of hypertension Blood work has been reviewed overall reassuring without any clinical significant abnormalities and a negative troponin Chest x-ray no acute cardiopulmonary process EKG has been reviewed and is similar to previous At this time patient's blood pressure remains in the 150s without evidence of any sort of end-organ damage. She has no evidence of hypertensive urgency or emergency. I do recommend that she check her blood pressure and record it. She has an upcoming appointment with her primary care provider. No concern for posterior CVA. Symptoms are not consistent vertigo. She has been ambulatory to the restroom without any issues. Discharge Plan Departure Patient Disposition: Home Clinical Impression: Dizziness Instructions: DI for Dizziness-Nonvertigo Activity Restrictions/Additional Instructions: *You have been diagnosed with dizziness *What to do: Overall workup in the emergency department is reassuring. Increase fluids as tolerated. Check your blood pressure 1 to 2 times daily record it and follow up with your primary care provider you may or may not require medication *Continue to take medications as directed *Follow up with your primary care provider in 2-3 days or call [phone] *Return to ER if you should have persistently elevated blood pressure greater than 200/110, chest pain shortness of breath falling [or] any new, worsening or concerning symptoms Prescriptions: No Action [Massage Therapy] 2XMONTH Qty: 0 0RF multivitamin [Multiple Vitamins] 1 EACH tablet 1 tab PO QDAY Qty: 0 naproxen 500 mg tablet 500 mg PO BID Qty: 60 1RF Rx Instructions: stop other nsaids, take with food pantoprazole 40 mg tablet,delayed release (DR/EC) See Rx Instructions .ROUTE .COMPLEX Qty: 90 0RF Dose Instruction: TAKE ONE TABLET BY MOUTH ONE TIME DAILY Rx Instructions: TAKE ONE TABLET BY MOUTH ONE TIME DAILY tramadol 50 mg tablet 50 mg PO BID PRN (Reason: pain) Qty: 60 0RF levothyroxine 125 mcg tablet 62.5 mcg PO DAILY rosuvastatin 10 mg tablet 10 mg PO DAILY Qty: 90 3RF cholecalciferol (vitamin D3) 1,000 unit capsule 2,000 unit PO DAILY pramipexole 0.25 mg tablet See Rx Instructions PO QPM PRN (Reason: restless leg(s)) Qty: 90 1RF Rx Instructions: orally every evening PRN; t 1/2 to 3 tabs as needed for restless legs tizanidine 4 mg tablet See Rx Instructions PO BEDTIME Qty: 90 2RF Rx Instructions: Take 1 - 1 1/2 - 3 tablets at bedtime as needed for muscle spasm oxycodone 5 mg tablet 5 mg PO TID PRN (Reason: pain) Qty: 10 0RF Rx Instructions: One tab 1 hour prior to procedure. Then 1 tab t.i.d. as needed for pain after procedure. Do not take in conjunction with other opioids or muscle relaxers. Referrals: Jagdeep Chacko MD [Primary Care Provider] - Stand Alone Forms: Patient Portal/API
== END 2023-10-22 17:26 | disposition home or self-care (01) ==
PROVIDERS: Emergency Provider Emergency Medicine; Family Provider Family Medicine; PCP Family Medicine
DX: I10 Essential (primary) hypertension (principal); R07.9 Chest pain, unspecified; R42 Dizziness and giddiness; Z79.899 Other long term (current) drug therapy
CPT/HCPCS: 36415; 71045; 80053; 82550; 83690; 83735; 83880; 84484; 85025; 85610; 85730; 93005; 96360; 96361; 99284

== ENCOUNTER 2023-11-24 10:12 | Outpatient (CLI) | payer MEDICARE, OTHER, SELFPAY ==
[2023-11-24] VITALS (16 sets, daily range): BP systolic 114–176; BP diastolic 58–78; PULSE 60–76; RESP 16–21; TEMP 36.2; O2SAT 95–100
[2023-11-24] MEDS: MIDAZOLAM 2 MG/2 ML VIAL IV (10:45)
[2023-11-24] MEDS: LIDOCAINE 2% INJ MDV 20ML 10 ML INJ (10:49)
[2023-11-24] MEDS: BUPIVACAINE 0.5% (PF) 10 ML VIAL INJ (10:49)
[2023-11-24] MEDS: LIDOCAINE 1% 20 ML INJ (10:50)
--- NOTE | 2023-11-24 11:00 | DI.RAD.S_ITS ---
PROCEDURE: PAIN L/S MED/LAT N RFA BILAT INDICATIONS: SPONDYLOSIS COMPARISON: None. FINDINGS: Fluoroscopic spot filming was performed to verify placement of spinal needles at the bilateral L3, L4 and L5 level(s), as labeled on the films. Appropriate location(s) of the needle tip(s) was confirmed by injection of iodinated contrast. IMPRESSION: Intra procedural examination demonstrating appropriate positions of the needles. Dictated by: Wilfrido Juarez M.D. on 11/25/2023 at 16:05 Approved by: Wilfrido Juarez M.D. on 11/25/2023 at 16:05
--- NOTE | 2023-11-24 11:33 | P.PCN_ITS ---
Date/Time/Diagnoses Date of procedure: 11/24/23 Time of procedure: 10:45 Procedure Notes Physician: Sancho Weir Total Fluoroscopy time (seconds): 35 Total sedation minutes: 41 Procedure in detail & Post-procedure care: Bilateral L3, 4, 5 Lumbar Medial Branch Radio Frequency Ablation Indications: Lili presents for treatment of lumbar spondylosis with low back pain. Preoperative diagnosis: Lumbar spondylosis Postoperative diagnosis: Same Focused Examination: Ax3 Mood and affect are normal Vital Signs: VSS ASA: 2 Consent: Following review of allergies and potential side effects/complications, including, but not necessarily limited to, infection, allergic reaction, local tissue breakdown, stroke, temporary or permanent nerve injury, paralysis, and possible , the patient indicated that they understood and agreed to proceed.? An informed consent document was signed by the patient, witnessed by a nurse and placed in the patient's chart.? Additionally, other treatment options including medications and physical therapy were reviewed with the patient. All questions were answered. Site was then marked. Position: Prone Monitoring: NIBP, Pulse oximetry, 3 lead EKG Needle used: 18 guage, 100 mm, 10 mm active tip Anesthesia: Local with IV sedation. After review of previous anesthetic history and IV conscious sedation, the patient was deemed safe to proceed with today's procedure with IV conscious sedation. IV sedation was accomplished with midazolam 2 mg administered by the RN after order by Dr. Weir. Sedation was titrated to patient comfort during the course of the procedure. Patient remained responsive to all verbal commands. Procedure: The patient was brought into the procedure room and positioned into the prone position. Skin was prepped with a Chloraprep solution, allowed to air dry, and then draped in sterile fashion.? The right L4-5 and L5-S1 facet joints were visually identified with fluoroscopy. Lidocaine 1% was used to anesthetize the skin over each target destination with a 25ga needle. An 18 ga, 100 mm RFA needle with a 10 mm active tip was advanced to the location of the medial branch at the junction of the superior articular process and the transverse process at L4,5 and the base of the SAP of the sacrum using intermittent fluoroscopy in the oblique view with caudal tilt. AP and lateral radiographs were taken to confirm proper needle placement. No paresthesias were noted. The stylet was removed and the radiofrequency probe was inserted through the cannula. Each level was individually tested.? Motor stimulation up to 2V elicited multifidus twitching in the lumbar spine. There was no motor stimulation in the lower extremities. After negative aspiration, 1ml of 2% lidocaine was injected at each of the levels and radiofrequency denervation carried out using 80 degrees Celsius for 90 seconds with Venom technology. Next, the left L4-5 and L5-S1 facet joints were visually identified with fluoroscopy. Lidocaine 1% was used to anesthetize the skin over each target destination with a 25ga needle. An 18 ga, 100 mm RFA needle with a 10 mm active tip was advanced to the location of the medial branch at the junction of the superior articular process and the transverse process at L4,5 and the base of the SAP of the sacrum using intermittent fluoroscopy in the oblique view with caudal tilt. AP and lateral radiographs were taken to confirm proper needle placement. No paresthesias were noted. The stylet was removed and the radiofrequency probe was inserted through the cannula. Each level was individually tested. Motor stimulation up to 2V elicited multifidus twitching in the lumbar spine. There was concern for motor stimulation of the L5 probe. Needle repositioned and retested with out motor stimulation of the lower extremity. After negative aspiration, 1ml of 2% lidocaine was injected at each of the levels and radiofrequency denervation carried out using 80 degrees Celsius for 90 seconds with Venom technology. After ablation, 0.5% bupivacaine 6 mL was injected in equal amounts among the sites (1 mL per site). At the end of the procedure the needles were withdrawn and Band-Aids were applied for a dressing. This procedure is expected to denervate the bilateral L4-5 and L5-S1 facet joints. Post Procedure: Patient was taken to the recovery and monitored. The patient was provided a Pain Log to continue to record the patient's response to the target- specific procedure prior to the patient's follow-up visit with the referring physician. Patient was stable upon discharge. Detailed post procedure instructions were provided. Patient was asked to call in the event of worsening pain, fever, weakness, numbness or bladder or bowel incontinence. Complications: None
== END 2023-11-24 11:58 | disposition home or self-care (01) ==
LOC: RAD 10:13
PROVIDERS: Family Provider Family Medicine; PCP Family Medicine; Referring Provider Anesthesiology; Visit Provider Anesthesiology
DX: M47.816 Spondylosis without myelopathy or radiculopathy, lumbar region (principal)
CPT/HCPCS: 64635; 64636; 99152; 99153; J2250

== ENCOUNTER → 2023-11-30 09:55 | Outpatient (CLI) | payer MEDICARE, OTHER, SELFPAY ==
[2023-11-30 10:50] LABS: Alanine Aminotransferase 35 IU/L (<35); Albumin 4.3 g/dL (3.5-5.0); Albumin Globulin Ratio 1.3 (1.0-2.8); Alkaline Phosphatase 55 U/L (38-126); Aspartate Aminotransferase 37 IU/L (14-36); BUN Creatinine Ratio 20.6 (6-22); Bilirubin Total 0.9 mg/dL (0.2-1.3); Blood Urea Nitrogen 20 mg/dL (7-17); Calcium 9.8 mg/dL (8.4-10.2); Carbon Dioxide 23 mmol/L (22-32); Chloride 103 mmol/L (98-107); Cholesterol 268 mg/dL (140-199); Estimated Glomerular Filt Rate > 60 mL/min (>60); Globulin 3.4 g/dL (1.7-4.1); Glucose 100 mg/dL (80-110); HDL Cholesterol 50 mg/dL (40-60); HEMOLYSIS < 15 (0-50); LDL Cholesterol Calculated 184 mg/dL (<100); Potassium 4.3 mmol/L (3.4-5.1); Sodium 134 mmol/L (137-145); Total Protein 7.7 g/dL (6.3-8.2); Triglycerides 171 mg/dL (35-150)
[2023-12-02 03:36] LABS: Apolipoprotein B 138 mg/dL (<90)
== END ==
PROVIDERS: Family Provider Family Medicine; PCP Family Medicine; Referring Provider Family Medicine; Visit Provider Family Medicine
DX: E78.5 Hyperlipidemia, unspecified (principal)
CPT/HCPCS: 36415; 80053; 80061; 82172

== ENCOUNTER → 2024-03-15 10:47 | Outpatient (CLI) | payer MEDICARE, OTHER, SELFPAY ==
[2024-03-15 11:21] LABS: Add Manual Diff / Slide Review NO; Basophils Absolute Auto 0 /uL (0-100); Basophils Percent Auto 0.6 % (0-2); Eosinophils Absolute Auto 100 /uL (0-450); Eosinophils Percent Auto 1.5 % (2-4); Hematocrit 39.9 % (36-46); Hemoglobin 13.4 g/dL (12.0-16.0); Lymphocytes Absolute Auto 1400 /uL (1100-4500); Lymphocytes Percent Auto 33.1 % (25-40); Mean Corpuscular HGB Conc 33.6 % (30-36); Mean Corpuscular Hemoglobin 28.4 PG (26-34); Mean Corpuscular Volume 84.7 fL (80-100); Monocytes Absolute Auto 300 /uL (0-900); Monocytes Percent Auto 7.5 % (3-14); Neutrophils Absolute Auto 2500 /uL (1500-7000); Neutrophils Percent Auto 57.3 % (50-75); Platelet Count 257 X10^3/uL (150-400); Red Blood Cell Count 4.71 X10^6/uL (4.0-5.2); Red Cell Distribution Width 13.5 % (11.6-14.8); White Blood Cell Count 4.4 X10^3/uL (4.5-11.0)
[2024-03-15 12:13] LABS: HEMOLYSIS < 15 (0-50); Iron 115 ug/dL (37-170)
[2024-03-15 12:25] LABS: Percent Iron Saturation 35 % (15-50); Total Iron Binding Capacity 327 ug/dL (265-497); Transferrin 304 mg/dL (206-381)
[2024-03-15 12:26] LABS: Ferritin 23 ng/mL (11-264)
== END ==
PROVIDERS: Family Provider Family Medicine; PCP Family Medicine; Referring Provider Family Medicine; Visit Provider Family Medicine
DX: R53.83 Other fatigue (principal)
CPT/HCPCS: 36415; 82728; 83540; 83550; 85025

== ENCOUNTER → 2024-10-10 13:05 | Outpatient (CLI) | payer MEDICARE, OTHER, SELFPAY ==
--- NOTE | 2024-10-10 13:06 | DI.MG.S_ITS ---
MM screening mammo BI: 10/10/2024. BI-RADS: 1 CLINICAL: 69-year old female for bilateral screening mammogram. Tyrer-Cuzick lifetime risk of 3.9%. No personal or first-degree family history of breast cancer. PRIOR EXAMS 09/20/2023, 09/17/2022, 09/01/2021, 04/19/2020. MAMMOGRAPHY TECHNIQUE: 2D and 3D (tomosynthesis) digital mammographic views obtained, with additional images as needed for full coverage. Current study was also evaluated with a Computer Aided Detection (CAD) system. DENSITY B. There are scattered areas of fibroglandular density. MAMMOGRAPHY FINDINGS Bilateral: No suspicious mass, asymmetry, microcalcification, or other abnormality seen. No significant change from comparison. IMPRESSION: * No evidence of malignancy. RECOMMENDATIONS Bilateral * Annual screening mammography. OVERALL ASSESSMENT CATEGORY BI-RADS-1: Negative. The [employer] [place] recommends annual screening mammography beginning at age 40 for women with average risk of breast cancer. ELECTRONICALLY SIGNED: Maximus Vilchis M.D. on 10/10/2024 at 03:42:33 PM PT
== END ==
PROVIDERS: Family Provider Family Medicine; PCP Family Medicine; Referring Provider Family Medicine; Visit Provider Family Medicine
DX: Z12.31 Encounter for screening mammogram for malignant neoplasm of breast (principal)
CPT/HCPCS: 77063; 77067

== ENCOUNTER → 2025-02-06 10:32 | Outpatient (CLI) | payer MEDICARE, OTHER, SELFPAY ==
--- NOTE | 2025-02-06 16:00 | ST.SWALLOW ---
Visit Care Team Role Provider Type Jagdeep Chacko MD Family Provider Physician Primary Care Provider Specialty: Family Practice Address: [address] [place] [address], [id number] Email: [email or web address] Daryl Vilchis MD Attending Provider Physician Referring Provider Specialty: Ear, Nose, Throat Address: [address] [place] [address], [id number] Email: [email or web address] Modified Barium Swallow Study FAMILY PROGRAM SPECIALIST Modified Barium Swallow Study Start: 02/06/25 09:17 Freq: Status: Active Protocol: Document 02/06/25 15:22 LNK (Rec: 02/06/25 16:00 LNK Desktop) Modified Barium Swallow Study Total Time Visit Start Time 11:00 Visit Stop Time 11:45 Total Visit Minutes 45 Referral Referring Physician Daryl Hanson MD, ENT Reason for Referral dysphagia Setting Setting Outpatient Care Patient Information Identification Type Name,Date of Patient History pt was seen for a Modified Barium Swallow Study with c/ o pills and breads sticking n her throat (pointing to sternal notch). Pt noted relief with drinking hot water . Pt's PMH includes (per chart review) included a large hiatal hernia, GERD, dysphagia fibromyalgia. Pt had an MBS in 2020 that indicated esophageal phase dysphagia with trace aspiration. pt reported that she does not drink liquids during meals, waiting instead to the end of the meal. She described frequent regurgitation of solid undigested foods and sometimes water. She also described difficulty swallowing pills, especially supplements such as Laurel-3 or calcium . Subjective Pt was seated in the flouroscopy chair with directions Observations and procedures explained for her. She indicated he understood and agreed to proceed. Patient Positioning Position View Lat-A/P Imaging Lateral View Textures Administered Trials Presented Thin Liquid via Spoon (IDDSI 0),Thin Liquid via Cup ( IDDSI 0),Extremely Thick Liquid via Spoon (IDDSI 4), Regular (IDDSI 7) Barium Tablet Yes The IDDSI Framework Protocol: IDDSI.1 Oral Impairment Source: The Modified Barium Swallow Impairment Profile (MBSImP??) Lip Closure No labial escape Tongue Control Cohesive bolus between tongue to palatal seal During Bolus Hold Bolus Preparation/ Timely & efficient chewing & mashing Mastication Bolus Transport/ Brisk tongue motion Lingual Motion Oral Residue Residue collection on oral structures Location Tongue Initiation of Bolus head at pyriforms Pharyngeal Swallow Additional Oral *OME and DKS were observed to be WNL. Impairment *Dentition natural and in good hygiene Observations *Mastication observed with rotary chew pattern. *Good bolus formation, control and AP transition. *Velopharyngeal closure was WNL. *oral phase of swallow WNL Pharyngeal Impairment Source: The Modified Barium Swallow Impairment Profile (MBSImP??) Soft Palate No bolus between soft palate & pharyngeal wall Elevation Laryngeal Elevation Part.sup.move.thyroid cart/part.approx.arytenoids to epiglot.petiole Anterior Hyoid No anterior movement Excursion Epiglottic Movement Complete inversion Laryngeal Vestibular Complete; no air/contrast in laryngeal vestibule Closure Pharyngeal Stripping Present - complete Wave Pharyngoesophageal Complete distention & complete duration; no obstruction Segment Opening of flow Tongue Base Trace column of contrast/air betwn tongue base & post. Retraction pharyngeal wall Pharyngeal Residue Trace residue within/on pharyngeal structures Location Diffuse (>3 areas) Additional *Hyoid/laryngeal elevation and epiglottic inversion Pharyngeal were judged to be adequate. Impairment *Tongue base retraction was mildly reduced resulting in Observations trace residue. *Pharyngeal stripping wave and cricopharyngeal opening appeared adequate and did not appear to impede bolus flow. *Post-swallow residue was mild primarily at the base of tongue, posterior pharyngeal wall, valleculae and pyriform sinuses primarily with puree and regular texture. Pt did sensate to residue and independently cleared with multiple dry swallows. *No laryngeal penetration or aspiration was observed. *Pharyngeal phase WFL for pt's age. A/P View The IDDSI Framework Protocol: IDDSI.1 A/P View Observations Pharyngeal Complete Contraction Esophageal Clearance Complete clearance; esophageal coating Upright Position Vocal Fold Function Good Esophageal Function WFL Clinical Impressions Dysphagia Type WNL Findings pt presented with swallowing across all phases WNL. Pt initially reported she does not drink liquids during meals, but wait until she is finished with her meal. Given the above results it is likely that as the Pt consumes food (i.e. eating fast or taking a big bite, etc.) it is likely that the food begins to stack within the esophagus and gets to the point that the pt needs to vomit. Drinking liquids after an meal (and Stacking of food in the esophagus) would also result in regurgitation. It was recommended that the pt drink more liquids during her meal to assist the bolus to the stomach. Alternating fluids and liquids will allow th pt to consume a meal without a globus sensation and/or regurgitation. The results and recommendations of the MBSS were described to the pt while observing still pictures taken during the MBSS. Pt expressed appreciation and indicated she understood. All pt questions were addressed. Patient Appropriate No for Therapy Recommendations Diet Comments No diet change recommended
== END ==
LOC: RAD 10:34
PROVIDERS: Family Provider Family Medicine; PCP Family Medicine; Referring Provider Otolaryngology; Visit Provider Otolaryngology
DX: R13.13 Dysphagia, pharyngeal phase (principal); K21.9 Gastro-esophageal reflux disease without esophagitis
CPT/HCPCS: 74230; 92611